=== PATIENT | female | born 1970 | race Caucasian/White ===

== ENCOUNTER → 2017-10-03 | Outpatient (CLI) | payer BC ==
[~2017-10-03] MED LIST: 'CIPRO500 M1 PO; ABILIFY2 MG PO; ACETAMINOPHEN/B1 TA1 PO; ALEVE220 MG PO; ANAPROX DS550 MG PO; BUDEPRION XL150 MG PO; BUSPIRONE HCL7.5 MG PO; CIPRO500 MG PO; DEMADEX10 M1 PO; DOXYCYCLINE100 M2 PO; Duoneb 3ML 3 MG/3 ML NEB; EES200 MG/5 M PO; LEVOTHYROXINE0.05 M1 PO; MOTRIN400 MG PO; MOTRIN800 MG PO; NKHM; PERCOCET 325 MG1 TA7 PO; PHENERGAN W/DM120 ML PO; SLOW FE45 MG PO; ULTRAM50 MG PO; WELLBUTRIN XL300 MG PO; ZITHROMAX500 MG PO
== END ==
LOC: RAD 11:04
DX: J18.8 Other pneumonia, unspecified organism (principal)

== ENCOUNTER → 2017-10-15 | Outpatient (CLI) | payer BC | END | disposition home or self-care (01) | LOC: RAD 14:46 | DX: J18.9 Pneumonia, unspecified organism (principal); I67.1 Cerebral aneurysm, nonruptured; Z87.891 Personal history of nicotine dependence; Z95.5 Presence of coronary angioplasty implant and graft ==

== ENCOUNTER → 2017-11-20 | Outpatient (CLI) | payer BC ==
[~2017-11-20] MED LIST changes: +CLARITIN10 MG PO; +DUONEB 3 MG/3 ML3 M1 INH; +FLONASE ALLERG9.9 ML NAS; +PREDNISONE10 MG PO; +ROBITUSSIN DM 105 ML PO; +VIBRAMYCIN100 MG PO
[2017-11-20 11:29] LABS: HEMOGLOBIN 13.6 g/dl (12.0-16.0); MEAN CELL VOLUME 91.5 fl (81.0-99.0); MEAN CORPUSCULAR HGB 30.4 pg (27.0-31.0); MEAN CORPUSCULAR HGB CONC 33.2 g/dl (33.0-37.0); MEAN PLATELET VOLUME 9.8 fl (9.6-12.3); RED BLOOD COUNT 4.48 10*6/uL (4.10-5.10); RED CELL DISTRI WIDTH 13.3 % (0-14.5); WHITE BLOOD COUNT 5.9 10*3/uL (4.8-10.8)
[2017-11-20 12:01] LABS: ALKALINE PHOSPHATASE 124 U/L (45-117); BUN 13 mg/dl (7-24); CHLORIDE 103 mmol/L (98-107); CHOLESTEROL 201 mg/dL (<200); CREATININE 0.78 mg/dL (0.55-1.02); FREE T4 1.32 ng/dl (0.76-1.46); HDL CHOLESTEROL 67 mg/dl (40-60); LDL CHOLESTEROL 117 mg/dL (9-159); POTASSIUM 3.9 mmol/L (3.5-5.1); SGOT/AST 14 IU/L (3-35); SGPT/ALT 24 U/L (12-78); SODIUM 138 mmol/L (136-145); TOTAL PROTEIN 7.8 gm/dL (6.4-8.2); TRIGLYCERIDES 86 mg/dl (<150); VLDL CHOLESTEROL 17 mg/dL (6-40)
[2017-11-20 12:06] LABS: THYROID STIM HORMONE (HS) 0.641 uIU/ml (0.358-4.75)
== END | disposition home or self-care (01) ==
LOC: MRI 11-07 10:00 → LAB 10:55 → MRI 11:00
PROVIDERS: Family Medicine
DX: I72.3 Aneurysm of iliac artery (principal); E78.00 Pure hypercholesterolemia, unspecified; E03.9 Hypothyroidism, unspecified

== ENCOUNTER 2017-11-22 17:18 | Emergency (ER) | payer BC ==
[~2017-11-22] VITALS: Ht 167.6 cm; Wt 72.6 kg
[~2017-11-22 17:18] MED LIST changes: -CLARITIN10 MG PO; -DUONEB 3 MG/3 ML3 M1 INH; -FLONASE ALLERG9.9 ML NAS; -PREDNISONE10 MG PO; -ROBITUSSIN DM 105 ML PO; -VIBRAMYCIN100 MG PO
[2017-11-22 17:31] VITALS: BP 154/90
[2017-11-22 18:00] LABS: BASO % 0.5 % (0.0-1.0); EOS # 0.3 10*3/uL (0.0-0.4); EOS % 4.3 % (1.0-4.0); HEMATOCRIT 40.3 % (37.0-47.0); HEMOGLOBIN 13.4 g/dl (12.0-16.0); LYMPH # 1.5 10*3/uL (1.3-4.4); LYMPH % 24.4 % (27.0-41.0); MEAN CORPUSCULAR HGB 30.6 pg (27.0-31.0); MEAN CORPUSCULAR HGB CONC 33.3 g/dl (33.0-37.0); MEAN PLATELET VOLUME 9.6 fl (9.6-12.3); MONO # 0.6 10*3/uL (0.1-1.0); MONO % 8.8 % (3.0-9.0); NEUT # 3.9 10*3/uL (2.3-7.9); NEUT % 61.8 % (47.0-73.0); PLATELET COUNT AUTOMATED 284 10*3/uL (130-400); RED BLOOD COUNT 4.38 10*6/uL (4.10-5.10); RED CELL DISTRI WIDTH 13.3 % (0-14.5); WHITE BLOOD COUNT 6.3 10*3/uL (4.8-10.8)
[2017-11-22] MEDS ORDERED: PREDNISONE10 MG PO (18:07)
[2017-11-22] MEDS ORDERED: FLONASE ALLERG9.9 ML NAS (18:07)
[2017-11-22] MEDS ORDERED: CLARITIN10 MG PO (18:07)
[2017-11-22] MEDS ORDERED: ROBITUSSIN DM 105 ML PO (18:07)
[2017-11-22 18:15] LABS: ALBUMIN 3.8 gm/dl (3.1-4.5); ALKALINE PHOSPHATASE 129 U/L (45-117); BUN 7 mg/dl (7-24); CHLORIDE 103 mmol/L (98-107); CREATININE 0.81 mg/dL (0.55-1.02); POTASSIUM 3.5 mmol/L (3.5-5.1); SGOT/AST 13 IU/L (3-35); SGPT/ALT 22 U/L (12-78); SODIUM 140 mmol/L (136-145); TOTAL PROTEIN 7.7 gm/dL (6.4-8.2)
[2017-11-22] MEDS ORDERED: VIBRAMYCIN100 MG PO (18:36)
[2017-11-22] MEDS ORDERED: DUONEB 3 MG/3 ML3 M1 INH (18:40)
== END 2017-11-22 18:44 | disposition home or self-care (01) ==
LOC: ED 17:18
PROVIDERS: Nurse Practitioner Family
DX: J20.9 Acute bronchitis, unspecified (principal); R03.0 Elevated blood-pressure reading, without diagnosis of hypertension; J45.909 Unspecified asthma, uncomplicated; E03.9 Hypothyroidism, unspecified; Z98.890 Other specified postprocedural states; Z90.49 Acquired absence of other specified parts of digestive tract; Z90.710 Acquired absence of both cervix and uterus; Z79.899 Other long term (current) drug therapy; Z91.041 Radiographic dye allergy status; Z88.0 Allergy status to penicillin; Z88.5 Allergy status to narcotic agent

== ENCOUNTER → 2018-01-13 | Outpatient (CLI) | payer BC ==
[~2018-01-13] MED LIST changes: +CLARITIN10 MG PO; +DUONEB 3 MG/3 ML3 M1 INH; +FLONASE ALLERG9.9 ML NAS; +PREDNISONE10 MG PO; +ROBITUSSIN DM 105 ML PO; +VIBRAMYCIN100 MG PO
[2018-01-13 13:17] LABS: HEMATOCRIT 39.8 % (37.0-47.0); MEAN CELL VOLUME 93.6 fl (81.0-99.0); MEAN CORPUSCULAR HGB 30.6 pg (27.0-31.0); MEAN CORPUSCULAR HGB CONC 32.7 g/dl (33.0-37.0); MEAN PLATELET VOLUME 9.6 fl (9.6-12.3); RED BLOOD COUNT 4.25 10*6/uL (4.10-5.10); RED CELL DISTRI WIDTH 13.8 % (0-14.5); WHITE BLOOD COUNT 9.2 10*3/uL (4.8-10.8)
[2018-01-13 13:49] LABS: ALBUMIN 3.6 gm/dl (3.1-4.5); ALKALINE PHOSPHATASE 99 U/L (45-117); BUN 12 mg/dl (7-24); CHLORIDE 106 mmol/L (98-107); CHOLESTEROL 173 mg/dL (<200); CREATININE 0.82 mg/dL (0.55-1.02); FREE T4 1.09 ng/dl (0.76-1.46); HDL CHOLESTEROL 55 mg/dl (40-60); LDL CHOLESTEROL 100 mg/dL (9-159); POTASSIUM 4.1 mmol/L (3.5-5.1); SGOT/AST 12 IU/L (3-35); SGPT/ALT 17 U/L (12-78); SODIUM 141 mmol/L (136-145); TOTAL PROTEIN 7.4 gm/dL (6.4-8.2); TRIGLYCERIDES 90 mg/dl (<150); VLDL CHOLESTEROL 18 mg/dL (6-40)
[2018-01-13 13:54] LABS: THYROID STIM HORMONE (HS) 0.711 uIU/ml (0.358-4.75)
== END | disposition home or self-care (01) ==
LOC: LAB 12:50
PROVIDERS: Family Medicine
DX: E03.9 Hypothyroidism, unspecified (principal); E55.9 Vitamin D deficiency, unspecified; G47.09 Other insomnia; R53.83 Other fatigue

== ENCOUNTER 2018-12-25 23:45 | Emergency (ER) | payer BC ==
[~2018-12-25] VITALS: Ht 170.1 cm; Wt 68.0 kg
--- NOTE | ~2018-12-25 | WRIGHTHP ---
[place], [place] PATIENT HISTORY AND PHYSICAL EXAM NAME: REFUGIO GUEVARA [facility] #: [id number] UNIT #: [id number] ROOM: DOCTOR: ALEXANDRA HARPER MD BIRTHDATE: [birth year] DOS: HISTORY OF PRESENT ILLNESS: The patient is a 48-year-old female with a past medical history of: 1. Major depression, recurrent. 2. Asthma. 3. Hypothyroidism. 4. Generalized anxiety disorder. The patient presented to the Emergency Department at [facility] with increasing shortness of breath since Sunday, that is 4 days. The patient is already being treated with azithromycin and prednisone by Dr. Rubio Townsend with failed outpatient treatment. The patient had acute respiratory failure with hypoxemia and a pulse ox of 87% at room air. The patient was started on oxygen, breathing treatments and she was quite tachycardic when she was admitted, heart rate going as fast as 130 beats per minute. White cell count elevated at 17,000. No dizziness or fainting episodes. No other GI or urinary symptoms. REVIEW OF SYSTEMS: RESPIRATORY: Increasing shortness of breath, wheezing, chest congestion and cough. CARDIOVASCULAR SYSTEM: No chest pains or palpitations. GASTROINTESTINAL: No nausea, vomiting, diarrhea or constipation. ALLERGIES: Known allergies to IVP DYE, PENICILLIN, IODINE, CODEINE, VICODIN, TYLENOL. PHYSICAL EXAMINATION: GENERAL: Alert and oriented x 3, in no visible distress, somewhat short of breath. VITAL SIGNS: Blood pressure 117/78, heart rate 96 beats per minute, breathing 20 times per minute, temperature 98.1 degrees Fahrenheit. HEENT AND NECK: Extraocular movements are intact. Sclerae are anicteric. Oral mucosa is moist and clean. No obvious facial weakness. Neck is supple without any lymphadenopathy. No thyromegaly. No JVD. No carotid arterial bruits. LUNGS: Auscultation revealed decreased breath sounds and expiratory wheezing all over. CARDIOVASCULAR SYSTEM: Heart rate is regular in rate and rhythm. S1 and S2 normally audible. No significant murmur or any other abnormal cardiac sounds. ABDOMEN: Soft, nontender. No obvious organomegaly. Bowel sounds are present. No obvious herniation. EXTREMITIES: Without significant cyanosis or edema. Warm to touch. CENTRAL NERVOUS SYSTEM: Alert and oriented x 3. Cranial nerves II-XII are intact. Speech is normal. The patient is able to move all extremities. Normal muscle strength. Deep tendon reflexes are equal on both sides. Plantars were downgoing. LABORATORY DATA: Chest x-ray showing no acute abnormality. Normal serum electrolytes. Influenza A and B were negative. White cell count of 17,000. [place], [place] PATIENT HISTORY AND PHYSICAL EXAM NAME: REFUGIO GUEVARA UNIT #: [id number] ROOM: DOCTOR: ALEXANDRA HARPER MD BIRTHDATE: [birth year] IMPRESSION AND PLAN: 1. Acute exacerbation of asthma with acute respiratory failure, being treated with corticosteroids, oxygen, nebulizer treatments and antibiotic and the patient feels slightly better. 2. Generalized anxiety disorder, to be monitored, followed and treated. 3. Major depression, recurrent, mild, presently asymptomatic. 4. Hypothyroidism, to be treated with thyroid supplements as necessary. 5. Sinus tachycardia related to acute asthma exacerbation with heart rates going at 130 beats per minute, has reduced to normal with small dose of Cardizem that she is getting now. ALEXANDRA HARPER MD CM:HISPHYS:PATIENT HISTORY AND PHYSICAL EXAMINATION 25 27 ALEXANDRA HARPER MD 12/26/182021 interface
[2018-12-26 00:19] LABS: BASO % 0.2 % (0.0-1.0); EOS # 0.1 10*3/uL (0.0-0.4); EOS % 0.4 % (1.0-4.0); HEMOGLOBIN 14.5 g/dl (12.0-16.0); LYMPH # 1.8 10*3/uL (1.3-4.4); LYMPH % 10.4 % (27.0-41.0); MEAN CELL VOLUME 97.1 fl (81.0-99.0); MONO # 0.9 10*3/uL (0.1-1.0); MONO % 5.5 % (3.0-9.0); NEUT # 14.2 10*3/uL (2.3-7.9); NEUT % 83.1 % (47.0-73.0); PLATELET COUNT AUTOMATED 394 10*3/uL (130-400); RED BLOOD COUNT 4.53 10*6/uL (4.10-5.10); RED CELL DISTRI WIDTH 14.2 % (0-14.5); WHITE BLOOD COUNT 17.1 10*3/uL (4.8-10.8)
[2018-12-26 00:44] LABS: ALBUMIN 3.8 gm/dl (3.1-4.5); ALKALINE PHOSPHATASE 130 U/L (45-117); BUN 15 mg/dl (7-24); CHLORIDE 106 mmol/L (98-107); POTASSIUM 3.7 mmol/L (3.5-5.1); SGOT/AST 10 IU/L (3-35); SGPT/ALT 21 U/L (12-78); SODIUM 140 mmol/L (136-145); TOTAL PROTEIN 8.3 gm/dL (6.4-8.2)
[2018-12-26 00:49] LABS: TROPONIN I < 0.015 ng/ml (<0.045)
[2018-12-26 00:50] VITALS: BP 138/89
[2018-12-26 00:53] LABS: BILIRUBIN NEGATIVE (NEGATIVE); BLOOD TRACE-INTACT (NEGATIVE); CLARITY CLEAR (CLEAR); COLOR YELLOW (YELLOW); GLUCOSE NEGATIVE (NEGATIVE); KETONE NEGATIVE (NEGATIVE); LEUKO ESTERASE TRACE (NEGATIVE); NITRITE POSITIVE (NEGATIVE); PH 5.5 (5.0-9.0); SPECIFIC GRAVITY 1.025 (1.005-1.030); UROBILINOGEN 0.2 E.U./dl (0.2-1.0)
[2018-12-26] MEDS ORDERED: LEVOFLOXACIN500 MG PO (00:57)
[2018-12-26 00:59] LABS: BACTERIA 4+; MUCOUS TRACE; RBC 0-2 rbc/hpf (0-2); WBC 16-20 wbc/hpf (0-5)
[2018-12-30] MEDS ORDERED: DILTIAZEM HCL240 M1 PO (17:43)
[2018-12-30] MEDS ORDERED: SEPTDS PO (17:43)
[2018-12-30] MEDS ORDERED: MEDROL DOSEPAK4 MG PO (17:46)
== END 2018-12-26 01:23 | disposition left against medical advice (07) ==
LOC: ED 23:45
PROVIDERS: Physician Assistant
DX: J40 Bronchitis, not specified as acute or chronic (principal); R09.02 Hypoxemia; F17.200 Nicotine dependence, unspecified, uncomplicated; Z91.041 Radiographic dye allergy status; Z88.0 Allergy status to penicillin; Z88.6 Allergy status to analgesic agent; Z79.899 Other long term (current) drug therapy

== ENCOUNTER → 2019-02-27 | Outpatient (CLI) | payer BC ==
[~2019-02-27] MED LIST changes: +DILTIAZEM HCL240 M1 PO; +DULERA 100 MCG8.8 GM INH; +LEVOFLOXACIN500 MG PO; +MEDROL DOSEPAK4 MG PO; +PROAIR HFA8.5 GM INH; +SEPTDS PO
== END | disposition home or self-care (01) ==
LOC: RAD 12:54
DX: J18.1 Lobar pneumonia, unspecified organism (principal); R50.9 Fever, unspecified; J45.909 Unspecified asthma, uncomplicated

== ENCOUNTER 2019-02-28 13:06 | Inpatient (IN) | payer BC ==
[~2019-02-28] VITALS: Ht 170.2 cm; Wt 72.6 kg
--- NOTE | ~2019-02-28 | EKG ---
[place], [place] ELECTROCARDIOGRAM REPORT NAME: REFUGIO GUEVARA UNIT #: [id number] ROOM: [facility] DOCTOR: HAWAANY DRAFT REPORT BIRTHDATE: [birth year] [facility] Test Date: 2019-03-01 Test Time: 22:13:20 Pat Name: REFUGIO GUEVARA Department: Room: [place] [address] Gender: F Office Rn: : 1970 Requested By: ALEXANDRA HARPER Order Number: [id number] Reading MD: Celi Antunez Measurements Intervals [place] Rate: 98 P: 87 [place]: 143 QRS: 21 QRSD: 96 T: 82 QT: 362 QTc: 463 Interpretive Statements Sinus rhythm Anteroseptal infarct, age indeterminate Compared to ECG 12/26/2018 05:09:09 Sinus tachycardia no longer present Atrial abnormality no longer present Left ventricular hypertrophy no longer present ST (T wave) deviation no longer present Myocardial infarct finding still present Electronically Signed On 03-05-2019 13:06:38 PDT by Celi Antunez CM:EKGRPT:ELECTROCARDIOGRAM REPORT [id number] 1306 ALEXANDRA HARPER MD EPIPHANY DRAFT REPORT ALEXANDRA HARPER MD
--- NOTE | ~2019-02-28 | CON ---
[place], [place] REPORT OF CONSULTATION NAME: REFUGIO GUEVARA [facility] #: [id number] UNIT #: [id number] ROOM: [facility] DOCTOR: DELROY SHANE MD BIRTHDATE: [birth year] DOS: 03/01/2019 PULMONARY CONSULTATION, EVALUATION AND MANAGEMENT CONSULTATION REQUESTED BY: Dr. Baumann. REASON FOR CONSULTATION: To assess the abnormal respiratory symptoms. HISTORY OF PRESENT ILLNESS: This is a 48-year-old white female patient with past history of COPD. The patient has been seen only one time, one day with admission in 12/2018. The patient was assessed at that time for exacerbation of chronic obstructive pulmonary disease with acute respiratory failure. She was also noted possibility of right middle lobe atelectasis with possible endobronchial obstruction. The patient was discharged the next day. She has not been seen in my office after that or in this hospital. She presented to the Emergency Room and has been hospitalized under care of Dr. Baumann from 02/28/2019. She presented to the Emergency Room with symptoms of increasing shortness with chest congestion. The patient denies any symptoms of fever or chills with current symptoms. She has been noted excessive chest congestion and coughing. She was also complaining of severe pain, which stated this morning at the time of the assessment approximately at 10:30 a.m., in the left anterior, lateral and posterior chest wall. She has been noted with chest congestion as well. The pulse oxygen saturation recorded 98% in the Emergency Room and normal pulse ox saturation later was noted this morning as a pulse oxygen saturation as 93% saturation at 08:11 a.m. At that time, the patient was seen, she was not using any oxygen supplementation, sitting on the side of the bed. The patient does complain of symptoms of some chest congestion and wheezing as well. REVIEW OF SYSTEMS: CONSTITUTIONAL SYMPTOMS: Fatigue and tiredness noted without any symptoms of fever or chills. EYES: Denies any burning, redness, or tenderness. EARS, NOSE, THROAT SYMPTOMS: Denies sore throat, hoarseness, otalgia, postnasal drainage or epistaxis. CARDIOVASCULAR: Denies angina pain, edema or pain of the lower extremities. GASTROINTESTINAL: Denies dysphagia, nausea, vomiting, diarrhea, abdominal pain, hematemesis, melena, or hematochezia. SKIN: Denies abnormal lesions or rashes. CENTRAL NERVOUS SYSTEM: Dizziness, headache, diplopia or syncopal episodes. PAST MEDICAL HISTORY: 1. The patient was noted as COPD, not assessed in the office previously. 2. Hypothyroidism. 3. Nicotine dependence with recent tobacco cessation. 4. Essential hypertension. SOCIAL HISTORY: The patient is . She lives at home. She has 5 children. Smoking started at younger age, a pack of cigarettes per day until 12/2018. [place], [place] REPORT OF CONSULTATION NAME: REFUGIO GUEVARA UNIT #: [id number] ROOM: [facility] DOCTOR: DELROY SHANE MD BIRTHDATE: [birth year] FAMILY HISTORY: Father is in a motor vehicle accident. Mother is living with history of type 2 diabetes mellitus. CURRENT MEDICATIONS: Which were administrated noted as Lovenox 40 mg subcutaneous daily, DuoNeb q. 4 hours, Protonix, IV Solu-Medrol 40 mg b.i.d., Cardizem-CD 240 mg daily, levothyroxine 50 mcg daily, Levaquin and vancomycin. The patient has previously received Rocephin as well. ALLERGIES: THE DRUG NOTED WITH SEVERAL ALLERGIES THAT INCLUDE: 1. IVP DYE. 2. PENICILLIN. 3. IODINE. 4. CODEINE. 5. VICODIN. PHYSICAL EXAMINATION: GENERAL: This is a 48-year-old female patient currently noted with excessive chest congestion and coughing at the present time. Height noted 5 feet 7 inches, weight of 160 pounds, BMI 25. VITAL SIGNS: Recorded shows a normal temperature since admission, respiratory rate 20-22, heart rate of 133-134 with sinus tachycardia. Pulse oxygen saturation recorded on room air 98% on 2 liters nasal cannula, 93% saturation earlier. HEENT: Head was atraumatic. Eyes nonicterus. NECK: Supple. CARDIOVASCULAR: Decreased breath sounds. Crackles of the left. ABDOMEN: Soft, nontender. Bowel sounds present. EXTREMITIES: The patient was noted without any acute edema. MUSCULOSKELETAL: The patient was noted without any acute deformities. CENTRAL NERVOUS SYSTEM: The patient's cranial nerves 2-12 intact. LABORATORY DATA: Chest x-ray done yesterday in the Emergency Room was noted with a large area of consolidation of the right upper lung was seen, right middle lobe cannot be clearly seen. One-view x-ray was done interstitial infiltration in the left lingula was also suspected. On 02/27/2019, chest x-ray was noted with persistent right middle lobe atelectasis with acute infiltration , which noted involving significant of the left lung. The chest x-ray that was done on previous admission was reviewed at that time shows partial right middle lobe atelectasis, finding of the left lung was noted completely new. IMPRESSION: 1. The patient will be currently admitted to the hospital with progressive increased respiratory symptom with acute pneumonia involving significant part of the left lung. 2. Acute exacerbation of chronic obstructive pulmonary disease as well. 3. The patient with excessive chest congestion with intermittent cough with current chest x-ray. PLAN OF TREATMENT: The patient will be requiring the bronchoscopy as well at some point of time during this hospitalization. The patient is already being [place], [place] REPORT OF CONSULTATION NAME: REFUGIO GUEVARA UNIT #: [id number] ROOM: [facility] DOCTOR: DELROY SHANE MD BIRTHDATE: [birth year] seen and managed for the infection by the Infectious Disease Services, follow their recommendation. Closely monitor respiratory status. At the present time with additional treatment changes will be recommended based on progression of the illness. Usual care, other therapy, plan of management and care, plan of treatments. Thanks for allowing me to participate in the care of this patient. DELROY CHAVEZ MD CM:CONSTR:REPORT OF CONSULTATION 1351 03/02/19 0458 interface
--- NOTE | ~2019-02-28 | O ---
[place], [place] OPERATIVE NOTE NAME: REFUGIO GUEVARA UNIT #: [id number] ROOM: [facility] DOCTOR: EVIE CASTANEDA CRNA BIRTHDATE: [birth year] DOS: 03/01/2019 INTUBATION REPORT Approximately 1:20 in the afternoon, I was called by the hospital. Dr. Collins was requesting a breathing tube be placed for the patient in ICU bed 12. Upon arrival, the patient's breathing was labored. Sat was 88. I explained the procedure to the patient and family, answered all questions and they agreed to proceed. She received 2 mg of Versed and 150 mg of propofol. We used a #4 MAC and a 7.5 oral ET tube placed without difficulty. Placement was verified with a positive end tidal CO2 and verified with breath sounds. Tube was secured at 21 cm at the lip line. This was done on the first attempt without difficulty. Care was resumed by staff and a chest x-ray was ordered. EVIE CASTANEDA CRNA CM:OPRECORD:OPERATIVE NOTE 1507 1519 EVIE CASTANEDA CRNA 03/13/192031 interface
--- NOTE | ~2019-02-28 | EKG ---
[place], [place] ELECTROCARDIOGRAM REPORT NAME: REFUGIO GUEVARA UNIT #: [id number] ROOM: [facility] DOCTOR: SELINA DRAFT REPORT BIRTHDATE: [birth year] [facility] Test Date: 2019-02-28 Test Time: 13:06:01 Pat Name: REFUGIO GUEVARA Department: Room: [facility] Gender: F Carpet Winder: : 1970 Requested By: ARASH SMALLS Order Number: [id number] Reading MD: Celi Antunez Measurements Intervals [place] Rate: 132 P: 90 WV: 145 QRS: 32 QRSD: 102 T: 138 QT: 298 QTc: 442 Interpretive Statements Sinus tachycardia LAE, consider biatrial enlargement LVH with secondary repolarization abnormality Anterior infarct, old Baseline wander in lead(s) II,V3 Compared to ECG 12/26/2018 05:09:09 Early repolarization now present ST (T wave) deviation no longer present Myocardial infarct finding still present Electronically Signed On 03-05-2019 12:49:43 PDT by Celi Antunez CM:EKGRPT:ELECTROCARDIOGRAM REPORT 1306 1249 ARASH MAHER DRAFT REPORT ARASH SMALLS DO
--- NOTE | ~2019-02-28 | DS ---
[place], [place] DISCHARGE SUMMARY NAME: [id number] UNIT #: [id number] ROOM: [facility] DOCTOR: ALEXANDRA HARPER MD BIRTHDATE: [birth year] DOS: 03/01/2019 DATE OF ADMISSION: 02/28/2019 DATE OF DISCHARGE: 03/01/2019 DISCHARGE DIAGNOSES: 1. Acute bilateral pneumonia, which is progressive. 2. Gram-positive cocci in clusters growing out of blood cultures. 3. Acute hypoxemia and acute respiratory failure, the patient intubated and on mechanical ventilation. 4. History of asthma. 5. Acute exacerbation of chronic obstructive pulmonary disease. 6. Generalized anxiety disorder. 7. Hypothyroidism. 8. Major depression, recurrent, mild. 9. History of sinus tachycardia. 10. Benign essential hypertension. HOSPITAL COURSE: The patient presented to Emergency Department with 4-5 day complaints of increasing shortness of breath, shaking chills, cough, shortness of breath and significant left chest pains, pleuritic in nature, mainly happen when she coughed. The patient was admitted to a monitored bed and later on transferred to ICU when she became even more hypoxemic. Chest x-rays showed bilateral lung infiltrate, more on the left side. The patient was evaluated by musical instruments assembler, Dr. Collins and ID consult was obtained. The patient has been covered with Levaquin, Rocephin. The patient develops significant tachycardia, heart rates up to 150 beats per minute, for which she was given Cardizem, which made her hypotensive. Later on, the patient required propofol infusion for sedation when she was intubated and on mechanical ventilation. Blood pressure is staying around 90 systolic now and heart rate around 130 beats per minute, sinus tachycardia. The patient has leukocytosis with a white cell count of 28,000. Sputum culture results are pending. Blood culture results as mentioned above. The patient is deeply sedated on mechanical ventilator. Since health status is declining. Dr. Collins, the musical instruments assembler, recommended transfer to a tertiary care center, which is being arranged. Hypokalemia, replaced with potassium supplements. Acute respiratory failure, the patient intubated and on mechanical ventilation. Vent management by Dr. Collins in the ICU. Cardiac enzymes have been negative. Sepsis from pneumonia with 2/2 bottles growing gram-positive cocci in clusters. Final culture results are still pending. Hypothyroidism, replaced with thyroid supplements. Left-sided severe pleuritic chest pains, which were treated with Dilaudid. [place], [place] DISCHARGE SUMMARY NAME: REFUGIO GUEVARA [facility] #: [id number] UNIT #: [id number] ROOM: [facility] DOCTOR: ALEXANDRA HARPER MD BIRTHDATE: [birth year] Acute exacerbation of chronic obstructive pulmonary disease, being treated with bronchodilators. Generalized anxiety disorder, being treated and controlled. Major depression, recurrent, mild. The patient was continued on treatment. DISCHARGE MANAGEMENT: The patient is on intravenous Cardizem infusion, levothyroxine 50 mcg daily, Lovenox 40 mg subcutaneous daily, DuoNeb every 4 hours, IV Levaquin 750 mg daily, IV vancomycin, ceftriaxone 1 g daily. Heart rate 112-129 beats per minute, blood pressure 112/60, breathing 28 times per minute, temperature 100.6 degrees Fahrenheit. ALEXANDRA HARPER MD CM:HALINA [id number] 1539 ALEXANDRA HARPER MD 03/01/19 1541 interface
--- NOTE | ~2019-02-28 | EKG ---
[place], [place] ELECTROCARDIOGRAM REPORT NAME: REFUGIO GUEVARA UNIT #: [id number] ROOM: [facility] DOCTOR: SELINA DRAFT REPORT BIRTHDATE: [birth year] [facility] Test Date: 2019-02-28 Test Time: 15:40:14 Pat Name: REFUGIO GUEVARA Department: Room: [facility] Gender: F Car Cleaner: Devi Mccollum : 1970 Requested By: ARASH SMALLS Order Number: [id number] Reading MD: Celi Antunez Measurements Intervals [place] Rate: 123 P: 88 [place]: 133 QRS: 45 QRSD: 100 T: 91 QT: 346 QTc: 495 Interpretive Statements Sinus tachycardia Consider right atrial enlargement Anteroseptal infarct, acute Compared to ECG 12/26/2018 05:09:09 Left ventricular hypertrophy no longer present ST (T wave) deviation no longer present Myocardial infarct finding still present Electronically Signed On 03-05-2019 12:52:13 PDT by Celi Antunez CM:EKGRPT:ELECTROCARDIOGRAM REPORT [id number] 1252 ARASH MAHER DRAFT REPORT ARASH SMALLS DO
--- NOTE | ~2019-02-28 | CON ---
[place], [place] REPORT OF CONSULTATION NAME: REFUGIO GUEVARA UNIT #: [id number] ROOM: [facility] DOCTOR: HELEN RAYGOZA,JANUARY BIRTHDATE: [birth year] DOS: 03/01/2019 HISTORY OF PRESENT ILLNESS: The patient is a 48-year-old female who was admitted from home yesterday. She was brought in and she had been ill for approximately 4-5 days according to review of the chart with increasing shortness of breath, fevers, chills and pain in the left chest. Upon reviewing the chest x-ray and report, she has an extensive left lung pneumonia. She was started on IV vancomycin this morning. She was given one dose of vancomycin yesterday as well as Levaquin and Merrem. She also was started on Rocephin last night. Urine for legionella and strep pneumonia have been obtained and are pending. She developed respiratory distress and was just intubated within the last few minutes. Since intubation, she has had thick yellow as well as bloody secretions with suctioning. WBCs on admission 28.2, temperature earlier of 100.6. Her blood cultures are now positive with Gram-positive cocci in clusters from both sets. According to the ER note, she was recently diagnosed with pneumonia, but I do not find any documentation of recent prior antibiotics. PAST MEDICAL HISTORY: As above as well as COPD, hypertension, depression, hypothyroidism, generalized anxiety disorder, asthma, cholecystectomy, CVA. ALLERGIES: Include PENICILLIN, IODINE, CODEINE, HYDROCODONE, IVP DYE. PAST SURGICAL HISTORY: She had a prior brain aneurysm, tonsillectomy and adenoidectomy, surgery for her aneurysm repair. CURRENT MEDICATIONS: Lovenox, Peridex, Levaquin, DuoNeb, propofol, Protonix, Solu-Medrol, Cardizem, vancomycin, Synthroid, Dilaudid, Rocephin. LABORATORY DATA: VBG shows pH of 7.138, CO2 of 54, bicarbonate 17.2. BUN 33, creatinine 1.06. Troponins are normal. WBCs 28.2, platelets 323, left shift with 93% neutrophils. BUN 26, creatinine 0.91. LFTs within normal limits. C-reactive protein 55.4. ProBNP 923. Lipase 89. REVIEW OF SYSTEMS: Extremely limited. The patient is currently unresponsive, intubated, observed bloody ET tube secretions, has also had a yellow initially with tube placement. No emesis or diarrhea per nursing. Temperature max 100.6. FAMILY MEDICAL HISTORY: Father at a young age from car accident. Mother alive with history of type 2 diabetes. SOCIAL HISTORY: Reportedly, the patient is unmarried, recently quit smoking. Drinks alcohol on weekends. Per the chart, denied recreational drug use. PHYSICAL EXAMINATION: GENERAL: A 48-year-old female, somewhat restless, but currently not responding to questions, just recently intubated. VITAL SIGNS: Temperature 100.6, pulse 129, respirations 28, BP 112/60. HEENT: Normocephalic. No observable thrush. ET tube in place with bloody secretions. NECK: Seems supple. [place], [place] REPORT OF CONSULTATION NAME: REFUGIO GUEVARA UNIT #: [id number] ROOM: [facility] DOCTOR: HELEN RAYGOZAJANUARY BIRTHDATE: [birth year] LUNGS: Very diminished bilaterally with few rales on the left. Respirations are somewhat labored. HEART: Regular rhythm. No murmur appreciated, tachycardia noted. ABDOMEN: Soft, nondistended, positive bowel sounds. EXTREMITIES: Trace edema bilateral lower extremities. Dorsalis pedis pulses 1/2 bilaterally. SKIN: Warm, dry, free of rashes. EXTREMITIES: Without cyanosis or clubbing. ASSESSMENT: Staph septicemia with severe bilateral community-acquired pneumonia, now in respiratory failure requiring intubation. PLAN: Discussed with staff to obtain sputum culture from ET tube secretions. Continue the vancomycin. Repeat blood cultures now. Continue Levaquin. Follow up on blood cultures and urinary antigens. Stop Rocephin. ADDENDUM: Add Clindamycin to inhibit Staph aureus toxin production in the case of possible PVL. I agree with the assessment and plan done by the nurse practitioner, Milly Cervantes. Reviewed the labs and imaging, made the necessary changes in the note. MILLY CERVANTES CNP Kavita Clifton MD CM:CONSTR:REPORT OF CONSULTATION 1338 03/15/19 1527 interface
--- NOTE | ~2019-02-28 | WRIGHTHP ---
[place], [place] PATIENT HISTORY AND PHYSICAL EXAM NAME: REFUGIO GUEVARA [facility] #: [id number] UNIT #: [id number] ROOM: 406 DOCTOR: ALEXANDRA HARPER MD BIRTHDATE: [birth year] DOS: 02/28/2019 HISTORY OF PRESENT ILLNESS: The patient is a 48-year-old female with a past medical history of: 1. COPD. 2. Asthma. 3. Generalized anxiety disorder. 4. Hypothyroidism. 5. Major depression, recurrent, mild. 6. Sinus tachycardia. 7. Benign essential hypertension. The patient presented to the Emergency Department with 4-5 day complaints of increasing shortness of breath, shaking, chills, cough and shortness of breath with significant pain in her left chest, especially when she coughed. No dizziness or fainting episode. No GI or urinary symptoms otherwise. REVIEW OF SYSTEMS: RESPIRATORY: Increasing shortness of breath. LUNGS: Chest congestion and cough. GASTROINTESTINAL: No nausea, vomiting, diarrhea, constipation. CARDIOVASCULAR: Pleuritic chest pains, only with coughing. FAMILY HISTORY: Noncontributory. ALLERGIES: Known allergies to PENICILLIN, IODINE, CODEINE. PHYSICAL EXAMINATION: GENERAL: Alert, oriented x 3, in no visible distress, somewhat short of breath. VITAL SIGNS: Blood pressure 107/66, heart rate 133 beats per minute, breathing 22 times per minute, temperature 98.5 degrees Fahrenheit. HEENT AND NECK: Extraocular movements are intact. Sclerae are anicteric. Oral mucosa is moist and clean. No obvious facial weakness. Neck is supple without any lymphadenopathy. No thyromegaly. No JVD. No carotid arterial bruits. LUNGS: Clear to auscultation. No wheezing. No rhonchi. CARDIOVASCULAR SYSTEM: Tachycardia. S1 and S2 normally audible. No significant murmur or any other abnormal cardiac sounds. ABDOMEN: Soft, nontender. No obvious organomegaly. Bowel sounds are present. No obvious herniation. EXTREMITIES: Without significant cyanosis or edema. Warm to touch. CENTRAL NERVOUS SYSTEM: Alert and oriented x 3. Cranial nerves II-XII are intact. Speech is normal. The patient is able to move all extremities. Normal muscle strength. Deep tendon reflexes are equal on both sides. Plantars were downgoing. IMPRESSION AND PLAN: 1. The patient with left upper and lower lung pneumonia on right lower lung pneumonic infiltrates, large pneumonia, to be treated with antibiotics. I am obtaining consult with infectious disease specialist and with Dr. Collins. [place], [place] PATIENT HISTORY AND PHYSICAL EXAM NAME: REFUGIO GUEVARA UNIT #: [id number] ROOM: [facility] DOCTOR: MEREDITH NGUYEN,ALEXANDRA Laguerre BIRTHDATE: [birth year] 2. Severe leukocytosis related to pneumonia. The patient has some shortness of breath and acute exacerbation of chronic obstructive pulmonary disease, to be treated with bronchodilators, oxygen, antibiotics, breathing treatments as necessary. 3. Possibility of atypical pneumonia, mycoplasma. 4. Severe pleuritic chest pains related to pneumonia, to be treated with Dilaudid as needed. 5. History of hypothyroidism, needs to be treated and followed. 6. Questioning the patient on history of opioid abuse in her or her family, turned out to be negative. The patient says she has taken opioids before in hospitalization and after that she had no craving for the drugs. ALEXANDRA HARPER MD CM:HISPHYS:PATIENT HISTORY AND PHYSICAL EXAMINATION [id number] [phone] ALEXANDRA HARPER MD 02/28/196 interface
--- NOTE | ~2019-02-28 | EKG ---
[place], [place] ELECTROCARDIOGRAM REPORT NAME: REFUGIO GUEVARA UNIT #: [id number] ROOM: [facility] DOCTOR: SELINA DRAFT REPORT BIRTHDATE: [birth year] [facility] Test Date: 2019-02-28 Test Time: 19:01:36 Pat Name: REFUGIO GUEVARA Department: Room: [facility] Gender: F Hand Stripper: Lon Esparza : 1970 Requested By: ARASH SMALLS Order Number: [id number] Reading MD: Celi Antunez Measurements Intervals Tillman Rate: 120 P: 95 CT: 131 QRS: 66 QRSD: 102 T: QT: 346 QTc: 489 Interpretive Statements Sinus tachycardia LAE, consider biatrial enlargement Anterior infarct, old Nonspecific T abnormalities, lateral leads Compared to ECG 12/26/2018 05:09:09 T-wave abnormality now present Left ventricular hypertrophy no longer present ST (T wave) deviation no longer present Myocardial infarct finding still present Electronically Signed On 03-05-2019 12:53:06 PDT by Celi Antunez CM:EKGRPT:ELECTROCARDIOGRAM REPORT [id number] ARASH MAHER DRAFT REPORT ARASH SMALLS DO
[~2019-02-28 13:06] MED LIST changes: -DULERA 100 MCG8.8 GM INH; -PROAIR HFA8.5 GM INH
[2019-02-28 13:10] VITALS: BP 135/69
[2019-02-28] MEDS ORDERED: LEVOFLOXACIN500 MG PO (13:11)
[2019-02-28] MEDS ORDERED: PREDNISONE10 MG PO (13:11)
[2019-02-28 13:32] LABS: HEMATOCRIT 37.5 % (37.0-47.0); MEAN CELL VOLUME 92.8 fl (81.0-99.0); MEAN CORPUSCULAR HGB 32.2 pg (27.0-31.0); MEAN CORPUSCULAR HGB CONC 34.7 g/dl (33.0-37.0); MEAN PLATELET VOLUME 10.1 fl (9.6-12.3); PLATELET COUNT AUTOMATED 323 10*3/uL (130-400); RED BLOOD COUNT 4.04 10*6/uL (4.10-5.10); RED CELL DISTRI WIDTH 13.2 % (0-14.5); WHITE BLOOD COUNT 28.2 10*3/uL (4.8-10.8)
[2019-02-28 13:43] LABS: INTERNATIONAL NORM RATIO 1.1 (2.0-3.5)
[2019-02-28 13:48] LABS: ALBUMIN 2.6 gm/dl (3.1-4.5); ALKALINE PHOSPHATASE 105 U/L (45-117); BUN 26 mg/dl (7-24); CHLORIDE 106 mmol/L (98-107); CREATININE 0.91 mg/dL (0.55-1.02); POTASSIUM 3.3 mmol/L (3.5-5.1); SGOT/AST 8 IU/L (3-35); SGPT/ALT 15 U/L (12-78); SODIUM 138 mmol/L (136-145); TOTAL PROTEIN 7.2 gm/dL (6.4-8.2)
[2019-02-28 13:51] VITALS: BP 128/54
[2019-02-28 13:56] LABS: PLATELET SUFFICIENCY NORMAL (NORMAL); TOTAL CELLS COUNTED 100 #CELLS; TOXIC GRANULATION SLIGHT
[2019-02-28 14:02] LABS: TROPONIN I < 0.015 ng/ml (<0.045)
[2019-02-28 14:33] VITALS: BP 124/70
[2019-02-28 14:58] VITALS: BP 138/87
[2019-02-28 15:15] VITALS: BP 107/66
--- NOTE | 2019-02-28 15:15 | NUR ---
A 48, admitted to , under the services of Dr. MEREDITH NGUYEN,ALEXANDRA Laguerre with a diagnosis of SEPSIS,PNEUMONIA. Chief complaint is SHORTNESS OF BREATHE, CHEST/LUNG PAIN WITH COUGHING. Patient arrived via bed from ER. Monitor applied. Initial assessment completed. Vital signs taken and recorded. DR. MEREDITH NGUYEN,ALEXANDRA Laguerre notified of admission to the unit. Orders received. See assessment for past medical history, medications and allergies. Patient and/or family oriented to unit. [address] visitation policy reviewed. Clothing/patient valuable form completed. FAUSTINA REAVES
--- NOTE | 2019-02-28 15:52 | NUR ---
CALLED DR. HARPER MADE AWARE ADMISSION. ORDERS TAKEN AND REVIEWED.
--- NOTE | 2019-02-28 15:59 | NUR ---
DR. CHAVEZ CALLED AWARE OF CONSULT. NO NEW ORDERS.
[2019-02-28] MEDS ORDERED: DULERA 100 MCG8.8 GM INH (16:07)
[2019-02-28] MEDS ORDERED: PROAIR HFA8.5 GM INH (16:08)
--- NOTE | 2019-02-28 16:59 | NUR ---
CALLED DR. MCGREGOR ANSWERING SERVICE REGARDING CONSULT AND NEED CALL BACK. DR. JUDGE IS FOOD AND NUTRITION PROFESSOR THEY WILL PAGE HER TO CALL.
--- NOTE | 2019-02-28 18:42 | NUR ---
CALLED ANSWERING SERVICE FOR DR. JUDGE FOR ANTIBX AND RECURRENT PNEUMONIA.
--- NOTE | 2019-02-28 19:10 | NUR ---
DR. JUDGE RETURNED CALL. NOTIFIED OF LAB RESULTS . ORDERS RECEIVED
[2019-02-28 20:00] VITALS: BP 112/74
--- NOTE | 2019-02-28 23:39 | NUR ---
SPOKE WITH DR. HARPER REGARDING SUSTAINED HEART RATE IN 140'S AND CONTINUED C/O PAIN WITH PAIN MED NOT BEING EFFECTIVE. ORDERS RECEIVED.
--- NOTE | 2019-02-28 23:45 | NUR ---
SPOKE WITH DR. CERVANTES REGARDING HR OF 140'S.
--- NOTE | 2019-02-28 23:47 | NUR ---
ANSWERING SERVICE NOTIFIED OF CONSULT FOR DR. CERVANTES.
[2019-03-01] VITALS (19 sets, daily range): BP systolic 71–131; BP diastolic 38–69
[2019-03-01 06:28] LABS: BUN 33 mg/dl (7-24); CHLORIDE 102 mmol/L (98-107); CREATININE 1.06 mg/dL (0.55-1.02); POTASSIUM 3.2 mmol/L (3.5-5.1); SODIUM 135 mmol/L (136-145)
--- NOTE | 2019-03-01 10:19 | NUR ---
DILAUDID 1MG IV GIVEN PER PATIEMT REQUEST FOR CHEST BACK AND SIDE PAIN RATING 9/10.
--- NOTE | 2019-03-01 11:20 | NUR ---
PATIENT'S POX IS IN THE 60S. 5L APPLIED TO GET POX TO 92. PATIENT SOUNDS VERY RASPY. DR HARPER NOTIFIED. ORDERS GIVEN TO TRANSFER TO ICU. DR CHAVEZ NOTIFIED.
[2019-03-01 12:01] LABS: ABG HCO3 17.2 mmol/l (22-26); ARTERIAL BLOOD GAS PO2 98.2 mmHg (80-90)
[2019-03-01 12:04] LABS: ABG BASE EXCESS -11.6 mmol/L (-2.0-2.0); ARTERIAL BLOOD GAS PH 7.138 (7.35-7.45)
--- NOTE | 2019-03-01 12:55 | NUR ---
PATIENT INTUBATED BY ANESTHESIA. #7.5 ETT 22 LIP. OGT INSERTED. #16 PATEL INSERTED 200CC CLEAR STRAW URINE. ST PER CM-RATE LOW 100'S. POX 88% ON 100% FIO2 VIA VENT. RHONCHI T/O.
[2019-03-01 16:01] LABS: ABG HCO3 17.6 mmol/l (22-26); ABG O2 SATURATION 93.6 % (95-97); ARTERIAL BLOOD GAS PO2 93.3 mmHg (80-90)
[2019-03-01 16:06] LABS: ABG BASE EXCESS -14.4 mmol/L (-2.0-2.0); ARTERIAL BLOOD GAS PCO2 70.5 mmHg (35-45); ARTERIAL BLOOD GAS PH 7.029 (7.35-7.45)
--- NOTE | 2019-03-01 16:07 | NUR ---
NOTIFIED OF ABG RESULTS. NEW ORDERS RECEIVED.
--- NOTE | 2019-03-01 16:20 | NUR ---
Talked with Dr. Collins on the phone through some vent settings. Vent settings were changed to AC-24-500-8+-100%
[2019-03-01 17:28] LABS: ABG HCO3 16.1 mmol/l (22-26); ABG O2 SATURATION 94.6 % (95-97); ARTERIAL BLOOD GAS PCO2 54.5 mmHg (35-45); ARTERIAL BLOOD GAS PO2 88.3 mmHg (80-90)
[2019-03-01 17:49] LABS: ABG BASE EXCESS -13.7 mmol/L (-2.0-2.0); ARTERIAL BLOOD GAS PH 7.1 (7.35-7.45)
--- NOTE | 2019-03-01 20:13 | NUR ---
Versed given for sedation. It was immediately effective.
--- NOTE | 2019-03-01 20:29 | NUR ---
Report called to Mike at [facility].
--- NOTE | 2019-03-01 21:18 | NUR ---
[facility] had put patient on their vent. Patient's pulse ox kept dropping to 88%. Patient was placed back on [facility] vent and patient SPO2 remains 93-95%. This nurse just updated Milad at [facility].
--- NOTE | 2019-03-01 21:30 | NUR ---
Armida APARICIO updated spouse that we were unable to transport patient with [facility] and that patient would have to be life flighted. Awaiting flight crews arrival.
--- NOTE | 2019-03-01 21:43 | NUR ---
Mike at [facility] updated on patient's transfer status.
--- NOTE | 2019-03-01 22:13 | NUR ---
[facility] REQUESTED STAT EKG.
--- NOTE | 2019-03-01 22:46 | NUR ---
PATIENT TRANSPORTED TO [facility] BY [facility]. THIS NURSE ATTEMPTED TO UPDATE SPOUSE PHONE KEEPS RINGING BUSY.
--- NOTE | 2019-03-01 22:53 | NUR ---
ATTEMPTED TO CALL SPOUSE AGAIN. PHONE CONTINUES TO RING BUSY.
== END 2019-03-01 22:46 | disposition short-term general hospital (02) | DRG 871 ==
LOC: ED 13:06 → EDHOLD 14:50 → 4E 14:51 → ICCU 03-01 11:36
PROVIDERS: Emergency Medicine; Internal Medicine Critical Care Medicine; ADMIT Internal Medicine
PROC: 0BH17EZ Insertion of Endotracheal Airway into Trachea, Via Natural or Artificial Opening (ICD-10-PCS; principal; 2019-03-01)
PROC: 5A1935Z Respiratory Ventilation, Less than 24 Consecutive Hours (ICD-10-PCS; principal; 2019-03-01)
DX: A41.2 Sepsis due to unspecified staphylococcus (principal); J96.01 Acute respiratory failure with hypoxia; J15.4 Pneumonia due to other streptococci; J44.1 Chronic obstructive pulmonary disease with (acute) exacerbation; J44.0 Chronic obstructive pulmonary disease with (acute) lower respiratory infection; F33.0 Major depressive disorder, recurrent, mild; F41.1 Generalized anxiety disorder; E03.9 Hypothyroidism, unspecified; I10 Essential (primary) hypertension; B96.89 Other specified bacterial agents as the cause of diseases classified elsewhere; I95.9 Hypotension, unspecified; E87.6 Hypokalemia; Z88.0 Allergy status to penicillin; Z88.6 Allergy status to analgesic agent; Z88.8 Allergy status to other drugs, medicaments and biological substances; Z91.041 Radiographic dye allergy status; Z79.899 Other long term (current) drug therapy; Z87.01 Personal history of pneumonia (recurrent); Z87.440 Personal history of urinary (tract) infections; Z90.49 Acquired absence of other specified parts of digestive tract; Z90.710 Acquired absence of both cervix and uterus; Z83.3 Family history of diabetes mellitus; Z86.73 Personal history of transient ischemic attack (TIA), and cerebral infarction without residual deficits; Z90.89 Acquired absence of other organs

== ENCOUNTER → 2019-04-12 | Outpatient (CLI) | payer BC ==
[~2019-04-12] MED LIST changes: +DULERA 100 MCG8.8 GM INH; +PROAIR HFA8.5 GM INH
== END | disposition home or self-care (01) ==
LOC: RAD 13:32
DX: J15.212 Pneumonia due to Methicillin resistant Staphylococcus aureus (principal); R78.81 Bacteremia; J98.11 Atelectasis

== ENCOUNTER → 2019-04-19 | Outpatient (CLI) | payer BC | END | disposition home or self-care (01) | LOC: RAD 12:52 | DX: J18.9 Pneumonia, unspecified organism (principal) ==

== ENCOUNTER → 2019-05-28 | Outpatient (CLI) | payer SELFPAY | END | disposition home or self-care (01) | LOC: MAMMO 11:00 | DX: N64.89 Other specified disorders of breast (principal) ==

== ENCOUNTER → 2019-05-30 | Outpatient (CLI) | payer SELFPAY ==
[2019-05-30 15:50] LABS: CREATININE 0.95 mg/dL (0.55-1.02)
== END | disposition home or self-care (01) ==
LOC: LAB 01:32 → CT 16:00 → LAB 16:00
PROVIDERS: Radiology Diagnostic Radiology
DX: R91.1 Solitary pulmonary nodule (principal); J18.9 Pneumonia, unspecified organism; J45.909 Unspecified asthma, uncomplicated; R91.8 Other nonspecific abnormal finding of lung field

== ENCOUNTER → 2020-01-11 | Outpatient (CLI) | payer BC ==
[2020-01-11 16:31] LABS: HEMATOCRIT 37.1 % (37.0-47.0); HEMOGLOBIN 12.1 g/dl (12.0-16.0); MEAN CELL VOLUME 97.6 fl (81.0-99.0); MEAN CORPUSCULAR HGB 31.8 pg (27.0-31.0); MEAN CORPUSCULAR HGB CONC 32.6 g/dl (33.0-37.0); MEAN PLATELET VOLUME 9.4 fl (9.6-12.3); RED BLOOD COUNT 3.8 10*6/uL (4.10-5.10); RED CELL DISTRI WIDTH 13.5 % (0-14.5); WHITE BLOOD COUNT 11.2 10*3/uL (4.8-10.8)
[2020-01-11 16:49] LABS: ALBUMIN 3.5 gm/dl (3.1-4.5); ALKALINE PHOSPHATASE 137 U/L (45-117); BUN 23 mg/dl (7-24); CHLORIDE 111 mmol/L (98-107); CHOLESTEROL 184 mg/dL (<200); CREATININE 0.79 mg/dL (0.55-1.02); HDL CHOLESTEROL 55 mg/dl (40-60); LDL CHOLESTEROL 84 mg/dL (9-159); POTASSIUM 4.5 mmol/L (3.5-5.1); SGOT/AST 16 IU/L (3-35); SGPT/ALT 24 U/L (12-78); SODIUM 141 mmol/L (136-145); TOTAL PROTEIN 7.5 gm/dL (6.4-8.2); TRIGLYCERIDES 227 mg/dl (<150); VLDL CHOLESTEROL 45 mg/dL (6-40)
[2020-01-11 16:51] LABS: FREE T4 1.09 ng/dl (0.76-1.46)
[2020-01-11 16:56] LABS: THYROID STIM HORMONE (HS) 0.924 uIU/ml (0.358-4.75)
== END | disposition home or self-care (01) ==
LOC: LAB 16:10
PROVIDERS: Family Medicine
DX: E78.5 Hyperlipidemia, unspecified (principal); E03.9 Hypothyroidism, unspecified; R63.5 Abnormal weight gain; I25.10 Atherosclerotic heart disease of native coronary artery without angina pectoris

== ENCOUNTER → 2020-01-16 | Outpatient (CLI) | payer BC | END | disposition home or self-care (01) | LOC: US 10:22 | DX: R10.2 Pelvic and perineal pain (principal); N93.9 Abnormal uterine and vaginal bleeding, unspecified; Z90.710 Acquired absence of both cervix and uterus ==

== ENCOUNTER → 2020-07-26 | Outpatient (CLI) | payer BC | END | disposition home or self-care (01) | LOC: COVID19 13:10 | PROVIDERS: ATTEND Family Medicine | DX: R06.02 Shortness of breath (principal); J44.9 Chronic obstructive pulmonary disease, unspecified; Z20.828 Contact with and (suspected) exposure to other viral communicable diseases ==

== ENCOUNTER → 2020-07-31 | Outpatient (CLI) | payer BC | END | disposition home or self-care (01) | LOC: RAD 16:30 | PROVIDERS: ATTEND Family Medicine | DX: J98.4 Other disorders of lung (principal) ==

== ENCOUNTER → 2020-08-04 | Outpatient (CLI) | payer BC ==
[2020-08-04 10:54] LABS: CREATININE 0.78 mg/dL (0.55-1.02)
== END | disposition home or self-care (01) ==
LOC: CT 10:00 → LAB 10:17
PROVIDERS: ATTEND Family Medicine
DX: J43.9 Emphysema, unspecified (principal)

== ENCOUNTER → 2020-08-27 | Outpatient (CLI) | payer BC | END | disposition home or self-care (01) | LOC: COVID19 14:25 | PROVIDERS: ATTEND Family Medicine | DX: Z20.828 Contact with and (suspected) exposure to other viral communicable diseases (principal) ==

== ENCOUNTER → 2021-05-09 | Outpatient (CLI) | payer BC ==
[2021-05-09 13:43] LABS: HEMATOCRIT 41.7 % (37.0-47.0); MEAN CELL VOLUME 96.3 fl (81.0-99.0); MEAN CORPUSCULAR HGB CONC 31.2 g/dl (33.0-37.0); MEAN PLATELET VOLUME 9.8 fl (9.6-12.3); RED BLOOD COUNT 4.33 10*6/uL (4.10-5.10); RED CELL DISTRI WIDTH 13.2 % (0-14.5)
[2021-05-09 14:00] LABS: ALBUMIN 3.8 gm/dl (3.1-4.5); ALKALINE PHOSPHATASE 125 U/L (45-117); BUN 17 mg/dl (7-24); CHLORIDE 106 mmol/L (98-107); CHOLESTEROL 219 mg/dL (<200); CREATININE 0.72 mg/dL (0.55-1.02); FREE T4 1.27 ng/dl (0.76-1.46); LDL CHOLESTEROL 107 mg/dL (9-159); POTASSIUM 4.1 mmol/L (3.5-5.1); SGOT/AST 7 IU/L (3-35); SGPT/ALT 19 U/L (12-78); SODIUM 139 mmol/L (136-145); TOTAL PROTEIN 7.5 gm/dL (6.4-8.2); TRIGLYCERIDES 199 mg/dl (<150)
[2021-05-09 14:05] LABS: THYROID STIM HORMONE (HS) 0.742 uIU/ml (0.358-4.75)
== END | disposition home or self-care (01) ==
LOC: LAB 13:06
PROVIDERS: ATTEND Family Medicine
DX: E03.9 Hypothyroidism, unspecified (principal); E78.5 Hyperlipidemia, unspecified; J44.9 Chronic obstructive pulmonary disease, unspecified; R06.02 Shortness of breath; R51.9 Headache, unspecified; R63.5 Abnormal weight gain

== ENCOUNTER → 2021-06-23 | Outpatient (CLI) | payer BC | END | disposition home or self-care (01) | LOC: RAD 18:01 | PROVIDERS: ATTEND Family Medicine | DX: J43.9 Emphysema, unspecified (principal) ==

== ENCOUNTER → 2021-08-13 | Outpatient (CLI) | payer BC ==
[~2021-08-13] MED LIST changes: +BUSPAR5 MG PO; +CEFUROXIME AXE250 MG PO; +CETIRIZINE10 MG PO; +PREDNISONE5 MG PO; +TOPROL XL25 MG PO; +TRELEGY ELLIPT1 EACH IH
[2021-08-13 14:08] LABS: HEMATOCRIT 40.9 % (37.0-47.0); MEAN CELL VOLUME 97.4 fl (81.0-99.0); MEAN CORPUSCULAR HGB 30.5 pg (27.0-31.0); MEAN CORPUSCULAR HGB CONC 31.3 g/dl (33.0-37.0); MEAN PLATELET VOLUME 9.6 fl (9.6-12.3); RED BLOOD COUNT 4.2 10*6/uL (4.10-5.10); RED CELL DISTRI WIDTH 14.1 % (0-14.5); WHITE BLOOD COUNT 16.1 10*3/uL (4.8-10.8)
[2021-08-13 14:24] LABS: ALBUMIN 3.9 gm/dl (3.1-4.5); ALKALINE PHOSPHATASE 106 U/L (45-117); BUN 20 mg/dl (7-24); CHLORIDE 101 mmol/L (98-107); CREATININE 0.78 mg/dL (0.55-1.02); POTASSIUM 5.5 mmol/L (3.5-5.1); SGOT/AST 10 IU/L (3-35); SGPT/ALT 22 U/L (12-78); SODIUM 139 mmol/L (136-145); TOTAL PROTEIN 8.2 gm/dL (6.4-8.2)
== END | disposition home or self-care (01) ==
LOC: LAB 13:38 → RAD 13:38
PROVIDERS: ATTEND Family Medicine
DX: J44.9 Chronic obstructive pulmonary disease, unspecified (principal); J18.9 Pneumonia, unspecified organism; D72.829 Elevated white blood cell count, unspecified

== ENCOUNTER → 2021-09-16 | Outpatient (CLI) | payer BC | END | disposition home or self-care (01) | LOC: CT 15:38 | PROVIDERS: ATTEND Family Medicine | DX: J18.8 Other pneumonia, unspecified organism (principal); R91.8 Other nonspecific abnormal finding of lung field ==

== ENCOUNTER → 2021-12-09 | Outpatient (CLI) | payer BC ==
[~2021-12-09] MED LIST changes: +ACETAMINOPHEN325 M2 PEG; +ASPIRIN CHEWABL81 MG PEG; +BUSPIRONE HCL7.5 MG PEG; +DILT-XR240 MG PO; +Ipratropium Brom3 ML INH; +LEVOFLOXACIN500 MG PEG; -LEVOTHYROXINE0.05 M1 PO; +LEVOTHYROXINE100 MC1 PO; +LEVOTHYROXINE50 MCG PEG; +METOPROLOL25 MG PEG; +POTASSIUM CHLO20 ME3 PEG; +PROTONIX40 M2 PEG; +REMERON15 M2 PEG; +TRELEGY ELLIPT1 EACH INH; +XANAX0.25 MG PEG
== END | disposition home or self-care (01) ==
LOC: RAD/SH 02:13
PROVIDERS: ATTEND Family Medicine
DX: R63.30 Feeding difficulties, unspecified (principal)

== ENCOUNTER 2022-08-31 19:22 | Emergency (ER) | payer BC ==
[~2022-08-31] VITALS: Ht 167.6 cm; Wt 70.3 kg
[2022-08-31 19:43] VITALS: BP 155/88
[2022-08-31 20:08] LABS: BASO % 0.4 % (0.0-1.0); EOS # 0.5 10*3/uL (0.0-0.4); EOS % 4.4 % (1.0-4.0); HEMATOCRIT 35.3 % (37.0-47.0); LYMPH # 2.4 10*3/uL (1.3-4.4); LYMPH % 22.3 % (27.0-41.0); MEAN CORPUSCULAR HGB 27.7 pg (27.0-31.0); MEAN CORPUSCULAR HGB CONC 31.4 g/dl (33.0-37.0); MEAN PLATELET VOLUME 8.7 fl (9.6-12.3); MONO # 0.6 10*3/uL (0.1-1.0); MONO % 5.8 % (3.0-9.0); NEUT # 7.3 10*3/uL (2.3-7.9); NEUT % 66.6 % (47.0-73.0); PLATELET COUNT AUTOMATED 480 10*3/uL (130-400); RED BLOOD COUNT 4.01 10*6/uL (4.10-5.10); RED CELL DISTRI WIDTH 16.3 % (0-14.5); WHITE BLOOD COUNT 10.9 10*3/uL (4.8-10.8)
== END 2022-08-31 22:58 | disposition home or self-care (01) ==
LOC: ED 19:22
PROVIDERS: Internal Medicine
DX: R04.0 Epistaxis (principal); Z88.0 Allergy status to penicillin; Z88.6 Allergy status to analgesic agent; Z88.1 Allergy status to other antibiotic agents; Z91.041 Radiographic dye allergy status; Z79.899 Other long term (current) drug therapy; Z79.82 Long term (current) use of aspirin; Z90.710 Acquired absence of both cervix and uterus; Z90.49 Acquired absence of other specified parts of digestive tract; Z87.891 Personal history of nicotine dependence

== ENCOUNTER 2022-09-12 08:51 | Emergency (ER) | payer BC ==
[~2022-09-12] VITALS: Ht 167.6 cm; Wt 70.3 kg
[2022-09-12 09:03] VITALS: BP 151/97
[2022-09-12] MEDS ORDERED: METOPROLOL TAR100 M1 PO (09:07)
[2022-09-12] MEDS ORDERED: DILTIAZEM HCL30 MG PO (09:07)
[2022-09-12] MEDS ORDERED: NICODERM CQ1 EAC1 T (09:08)
[2022-09-12] MEDS ORDERED: DAYVIGO10 MG PO (09:08)
[2022-09-12] MEDS ORDERED: ELIQUIS5 M1 PO (09:08)
[2022-09-12] MEDS ORDERED: PRAMIPEXOLE0.125 MG PO (09:09)
[2022-09-12] MEDS ORDERED: TRELEGY ELLIPT1 EAC1 INH (09:09)
[2022-09-12] MEDS ORDERED: VIBRA-TAB100 MG PO (12:18)
[2022-09-12] MEDS ORDERED: PERCOCET 5-3251 EACH PO (12:18)
== END 2022-09-12 12:40 | disposition home or self-care (01) ==
LOC: ED 08:51
DX: R04.0 Epistaxis (principal); Z88.0 Allergy status to penicillin; Z79.899 Other long term (current) drug therapy; Z88.5 Allergy status to narcotic agent; Z88.2 Allergy status to sulfonamides; Z91.040 Latex allergy status; Z88.8 Allergy status to other drugs, medicaments and biological substances; Z90.710 Acquired absence of both cervix and uterus; Z90.49 Acquired absence of other specified parts of digestive tract; Z98.890 Other specified postprocedural states; Z87.891 Personal history of nicotine dependence; F10.90 Alcohol use, unspecified, uncomplicated

== ENCOUNTER 2022-09-13 05:36 | Emergency (ER) | payer BC ==
[~2022-09-13] VITALS: Ht 167.6 cm; Wt 70.3 kg
[~2022-09-13 05:36] MED LIST changes: +DAYVIGO10 MG PO; +DILTIAZEM HCL30 MG PO; +ELIQUIS5 M1 PO; +METOPROLOL TAR100 M1 PO; +NICODERM CQ1 EAC1 T; +PERCOCET 5-3251 EACH PO; +PRAMIPEXOLE0.125 MG PO; +TRELEGY ELLIPT1 EAC1 INH; +VIBRA-TAB100 MG PO
[2022-09-13 05:51] VITALS: BP 188/110
== END 2022-09-13 06:54 | disposition home or self-care (01) ==
LOC: ED 05:36
DX: R04.0 Epistaxis (principal); Z87.891 Personal history of nicotine dependence; Z90.710 Acquired absence of both cervix and uterus; Z98.890 Other specified postprocedural states; Z90.49 Acquired absence of other specified parts of digestive tract; Z79.899 Other long term (current) drug therapy; Z79.82 Long term (current) use of aspirin; Z88.0 Allergy status to penicillin; Z91.041 Radiographic dye allergy status; Z88.1 Allergy status to other antibiotic agents; Z88.8 Allergy status to other drugs, medicaments and biological substances

== ENCOUNTER 2022-12-22 16:23 | Emergency (ER) | payer BC ==
[~2022-12-22] VITALS: Ht 170.1 cm; Wt 70.8 kg
[2022-12-22 16:49] VITALS: BP 163/87
[2022-12-22 17:30] LABS: BASO % 0.2 % (0.0-1.0); EOS # 0.1 10*3/uL (0.0-0.4); EOS % 0.7 % (1.0-4.0); HEMATOCRIT 31.2 % (37.0-47.0); LYMPH # 2.1 10*3/uL (1.3-4.4); LYMPH % 11.8 % (27.0-41.0); MEAN CELL VOLUME 75.7 fl (81.0-99.0); MEAN CORPUSCULAR HGB 22.8 pg (27.0-31.0); MEAN CORPUSCULAR HGB CONC 30.1 g/dl (33.0-37.0); MEAN PLATELET VOLUME 9.3 fl (9.6-12.3); MONO # 1.5 10*3/uL (0.1-1.0); MONO % 8.3 % (3.0-9.0); NEUT # 13.8 10*3/uL (2.3-7.9); NEUT % 77.4 % (47.0-73.0); PLATELET COUNT AUTOMATED 673 10*3/uL (130-400); RED BLOOD COUNT 4.12 10*6/uL (4.10-5.10); WHITE BLOOD COUNT 17.8 10*3/uL (4.8-10.8)
[2022-12-22 17:49] LABS: ALKALINE PHOSPHATASE 160 U/L (46-116); BUN 14 mg/dl (9-23); CHLORIDE 104 mmol/L (98-107); POTASSIUM 3.4 mmol/L (3.4-5.1); SGPT/ALT 30 U/L (10-49); TOTAL PROTEIN 7.1 gm/dL (6.0-8.0)
[2022-12-22] MEDS ORDERED: LEVOFLOXACIN500 MG PO (18:08)
== END 2022-12-22 18:14 | disposition home or self-care (01) ==
LOC: ED 16:23
PROVIDERS: Nurse Practitioner Family
DX: J40 Bronchitis, not specified as acute or chronic (principal); Z20.822 Contact with and (suspected) exposure to COVID-19; Z88.0 Allergy status to penicillin; Z88.8 Allergy status to other drugs, medicaments and biological substances; Z88.2 Allergy status to sulfonamides; Z91.041 Radiographic dye allergy status; Z79.899 Other long term (current) drug therapy; Z90.49 Acquired absence of other specified parts of digestive tract; Z90.710 Acquired absence of both cervix and uterus; Z98.890 Other specified postprocedural states; Z90.89 Acquired absence of other organs; Z87.891 Personal history of nicotine dependence

== ENCOUNTER → 2023-02-12 | Outpatient (CLI) | payer BC ==
[2023-02-12 17:28] LABS: ALKALINE PHOSPHATASE 104 U/L (46-116); CHOLESTEROL 195 mg/dL (<200); GAMMA GLUTAMYL TRANSPEPTIDASE 39 U/L (0-73); LDL CHOLESTEROL 101 mg/dL (9-159); SGPT/ALT 12 U/L (10-49); TOTAL PROTEIN 7.2 gm/dL (6.0-8.0); TRIGLYCERIDES 157 mg/dl (<150); URIC ACID 3.7 mg/dL (3.1-7.8)
== END | disposition home or self-care (01) ==
LOC: LAB 16:19
PROVIDERS: ATTEND Family Medicine
DX: K12.1 Other forms of stomatitis (principal); K76.0 Fatty (change of) liver, not elsewhere classified

== ENCOUNTER → 2023-02-13 | Outpatient (CLI) | payer BC | END | disposition home or self-care (01) | LOC: CT 01:03 | PROVIDERS: ATTEND Family Medicine | DX: J43.2 Centrilobular emphysema (principal); R91.8 Other nonspecific abnormal finding of lung field; J98.4 Other disorders of lung; I47.1 Supraventricular tachycardia ==

== ENCOUNTER → 2023-03-06 | Outpatient (CLI) | payer BC ==
[2023-03-06 16:06] LABS: BUN 12 mg/dl (9-23); CHLORIDE 100 mmol/L (98-107); POTASSIUM 5.1 mmol/L (3.4-5.1)
[2023-03-07 08:09] LABS: ALPHA-1-ANTITRYPSIN, SERUM 348 mg/dL (101-187)
[2023-03-07 12:07] LABS: ANTI-RNP ANTIBODIES <0.2 AI (0.0-0.9)
[2023-03-08 13:07] LABS: ANTISCLERODERMA-70 AB <0.2 AI (0.0-0.9); TB1 Ag VALUE 0.07 IU/mL (.)
== END | disposition home or self-care (01) ==
LOC: LAB 15:05
PROVIDERS: ATTEND Internal Medicine Hematology & Oncology
DX: J47.9 Bronchiectasis, uncomplicated (principal); R91.1 Solitary pulmonary nodule

== ENCOUNTER → 2023-03-07 | Outpatient (CLI) | payer BC | END | disposition home or self-care (01) | LOC: US 01:48 | PROVIDERS: ATTEND Family Medicine | DX: K76.89 Other specified diseases of liver (principal); N28.9 Disorder of kidney and ureter, unspecified ==

== ENCOUNTER → 2023-04-12 | Outpatient (CLI) | payer BC ==
[~2023-04-12] MED LIST changes: +BUMETANIDE0.5 MG PO; +CO Q10100 MG PO; +CO-ENZYME Q101 EACH PO; +K-TAB20 MEQ PO; +PANTOPRAZOLE SO40 MG PO; +PHARMASSURE MA500 MG PO; +PREDNISONE20 M1 PO; +PREMIERPRO RX ME1 GM IV; +TRAMADOL HCL50 MG PO; +VITAMIN B-121000 MC2 PO; +ZINC GLUCONATE50 MG PO
== END | disposition home or self-care (01) ==
LOC: RAD 14:42
PROVIDERS: ATTEND Internal Medicine Critical Care Medicine
DX: J43.8 Other emphysema (principal); R91.1 Solitary pulmonary nodule; J85.1 Abscess of lung with pneumonia; R63.4 Abnormal weight loss; Z99.81 Dependence on supplemental oxygen; Z87.891 Personal history of nicotine dependence

== ENCOUNTER → 2023-05-07 | Outpatient (CLI) | payer BC ==
[~2023-05-07] MED LIST changes: -ACETAMINOPHEN325 M2 PEG; +ACETAMINOPHEN325 M2 PO; -ASPIRIN CHEWABL81 MG PEG; +ASPIRIN CHEWABL81 MG PO; -BUSPIRONE HCL7.5 MG PEG; +K-LOR 20MEQ20 ME1 PO; -LEVOTHYROXINE50 MCG PEG; +LEVOTHYROXINE50 MCG PO; +MAGIC MOUTHWASH; +MILLIPRED5 MG PO
[2023-05-07 16:22] LABS: HEMATOCRIT 33.8 % (37.0-47.0); MEAN CELL VOLUME 85.1 fl (81.0-99.0); MEAN CORPUSCULAR HGB 27.7 pg (27.0-31.0); MEAN CORPUSCULAR HGB CONC 32.5 g/dl (33.0-37.0); MEAN PLATELET VOLUME 9.4 fl (9.6-12.3); PLATELET COUNT AUTOMATED 386 10*3/uL (130-400); RED BLOOD COUNT 3.97 10*6/uL (4.10-5.10); RED CELL DISTRI WIDTH 18.5 % (0-14.5); WHITE BLOOD COUNT 17.9 10*3/uL (4.8-10.8)
[2023-05-07 16:26] LABS: MANUAL DIFF REFLEX YES
[2023-05-07 16:43] LABS: TOTAL CELLS COUNTED 100 #CELLS
[2023-05-07 16:44] LABS: PLATELET SUFFICIENCY NORMAL (NORMAL)
[2023-05-07 17:00] LABS: POTASSIUM 3.5 mmol/L (3.4-5.1)
== END | disposition home or self-care (01) ==
LOC: LAB 01:39 → CT 15:00 → LAB 15:00
PROVIDERS: Family Medicine; ATTEND Internal Medicine Critical Care Medicine
DX: J43.9 Emphysema, unspecified (principal); R91.8 Other nonspecific abnormal finding of lung field; J85.1 Abscess of lung with pneumonia; Z87.891 Personal history of nicotine dependence; J98.11 Atelectasis; J96.11 Chronic respiratory failure with hypoxia; Z99.81 Dependence on supplemental oxygen; R63.4 Abnormal weight loss; J15.5 Pneumonia due to Escherichia coli; J15.1 Pneumonia due to Pseudomonas

== ENCOUNTER → 2023-06-01 | Day surgery (SDC) | payer BC ==
[~2023-06-01] VITALS: Ht 170.1 cm; Wt 61.2 kg
[~2023-06-01] MED LIST changes: +BUMETANIDE1 MG PO; +LEVOFLOXACIN750 M2 PO; +LISINOPRIL5 MG PO; +MEROPENEM-1 GM/50 ML IV; +METRONIDAZOLE500 M1 PO; +VANCOMYCIN1.25 GM/22 IV; +ZYVOX600 MG PO
[2023-06-01 08:31] VITALS: BP 167/91
[2023-06-01 09:50] VITALS: BP 156/87
[2023-06-01 10:05] VITALS: BP 164/88
[2023-06-01 10:46] VITALS: BP 166/88
[2023-06-02 10:08] LABS: ACID FAST SPEC PROCESSING Concentration (.)
== END ==
LOC: SDC 05-31 10:15
PROVIDERS: ATTEND Internal Medicine Critical Care Medicine
DX: J85.1 Abscess of lung with pneumonia (principal); R05.9 Cough, unspecified; A49.02 Methicillin resistant Staphylococcus aureus infection, unspecified site; J40 Bronchitis, not specified as acute or chronic; J44.9 Chronic obstructive pulmonary disease, unspecified; I25.2 Old myocardial infarction; Z86.73 Personal history of transient ischemic attack (TIA), and cerebral infarction without residual deficits; Z87.891 Personal history of nicotine dependence; Z98.890 Other specified postprocedural states

== ENCOUNTER 2023-09-06 19:02 | Emergency (ER) | payer BC ==
[~2023-09-06] VITALS: Ht 294.6 cm; Wt 63.5 kg
[~2023-09-06 19:02] MED LIST changes: +'XANAX0.5 MG PO; +ASPIRIN81 M1 PO; +AZITHROMYCIN500 M2 PO; +BUSPIRONE HCL10 MG PO; +CARDIZEM30 MG PO; +CEFEPIME HYDROCH2 GM IJ; +CIPROFLOXACIN750 MG PO; +ERTAPENEM1 GM IV; +ETHAMBUTOL HCL100 MG PO; +ETHAMBUTOL HYD400 MG PO; +KLOR-CON M2020 ME1 PO; +LEVOTHYROXINE50 MC1 PO; +MAGNESIUM400 M1 PO; +MIRAPEX0.5 MG PO; +MUCUS RELIEF600 MG PO; +Magnesium Oxid400 MG PO; +NATURE'S BLEND F1 MG PO; +OXYCODONE-ACET1 EACH PO; +PERCOCET 7.5-31 EACH PO; +POTASSIUM CHLO20 ME3 PO; +Rimactane,Rifa300 MG PO; +Synthroid,Levo50 MCG PO; +TRAMADOL HCL100 MG PO; +VANCOMYCIN HYDRO1 GM IV; +VITAMIN B121000 MC1 PO; +ZINC-22050 MG PO; +ZINC50 M4 PO
[2023-09-06 19:09] VITALS: BP 122/61
== END 2023-09-07 00:27 | disposition home or self-care (01) ==
LOC: ED 19:02
DX: Z48.00 Encounter for change or removal of nonsurgical wound dressing (principal); Z91.041 Radiographic dye allergy status; Z88.0 Allergy status to penicillin; Z88.5 Allergy status to narcotic agent; Z88.2 Allergy status to sulfonamides; Z88.8 Allergy status to other drugs, medicaments and biological substances; Z90.49 Acquired absence of other specified parts of digestive tract; Z90.710 Acquired absence of both cervix and uterus; Z98.890 Other specified postprocedural states; Z90.89 Acquired absence of other organs; Z87.891 Personal history of nicotine dependence

== ENCOUNTER 2023-09-15 16:22 | Emergency (ER) | payer BC ==
[~2023-09-15] VITALS: Ht 167.6 cm; Wt 63.5 kg
[2023-09-15 16:26] VITALS: BP 124/69
== END 2023-09-15 19:01 ==
LOC: ED 16:22
DX: Z48.00 Encounter for change or removal of nonsurgical wound dressing (principal); J44.9 Chronic obstructive pulmonary disease, unspecified; Z91.041 Radiographic dye allergy status; Z88.5 Allergy status to narcotic agent; Z88.2 Allergy status to sulfonamides; Z88.8 Allergy status to other drugs, medicaments and biological substances; Z90.710 Acquired absence of both cervix and uterus; Z90.49 Acquired absence of other specified parts of digestive tract; Z98.890 Other specified postprocedural states; Z87.891 Personal history of nicotine dependence; Z90.89 Acquired absence of other organs

== ENCOUNTER 2023-09-19 17:57 | Emergency (ER) | payer BC ==
[~2023-09-19] VITALS: Ht 167.6 cm; Wt 63.5 kg
[2023-09-19 18:05] VITALS: BP 104/73
[2023-09-19] MEDS ORDERED: PREDNISONE20 M1 PO (18:20)
== END 2023-09-19 19:08 | disposition home or self-care (01) ==
LOC: ED 17:57
DX: Z04.3 Encounter for examination and observation following other accident (principal); E87.1 Hypo-osmolality and hyponatremia; D64.9 Anemia, unspecified; J44.9 Chronic obstructive pulmonary disease, unspecified; F32.A Depression, unspecified; I10 Essential (primary) hypertension; E03.9 Hypothyroidism, unspecified; Z88.0 Allergy status to penicillin; Z88.5 Allergy status to narcotic agent; Z88.2 Allergy status to sulfonamides; Z91.041 Radiographic dye allergy status; Z88.8 Allergy status to other drugs, medicaments and biological substances; Z90.49 Acquired absence of other specified parts of digestive tract; Z90.710 Acquired absence of both cervix and uterus; Z98.890 Other specified postprocedural states; Z90.89 Acquired absence of other organs; Z87.891 Personal history of nicotine dependence; V43.62XA Car passenger injured in collision with other type car in traffic accident, initial encounter; Y93.89 Activity, other specified; Y92.410 Unspecified street and highway as the place of occurrence of the external cause; Y99.8 Other external cause status

== ENCOUNTER → 2024-01-17 | Outpatient (CLI) | payer BC ==
[2024-01-17 15:31] LABS: BASO # 0.1 10*3/uL (0.0-0.1); BASO % 0.5 % (0.0-1.0); EOS # 0.3 10*3/uL (0.0-0.4); EOS % 2.2 % (1.0-4.0); HEMATOCRIT 34.4 % (37.0-47.0); LYMPH # 2.3 10*3/uL (1.3-4.4); LYMPH % 18.9 % (27.0-41.0); MEAN CELL VOLUME 85.4 fl (81.0-99.0); MEAN CORPUSCULAR HGB 24.8 pg (27.0-31.0); MEAN CORPUSCULAR HGB CONC 29.1 g/dl (33.0-37.0); MEAN PLATELET VOLUME 8.7 fl (9.6-12.3); MONO # 0.8 10*3/uL (0.1-1.0); MONO % 6.6 % (3.0-9.0); NEUT # 8.8 10*3/uL (2.3-7.9); NEUT % 71.3 % (47.0-73.0); PLATELET COUNT AUTOMATED 507 10*3/uL (130-400); RED BLOOD COUNT 4.03 10*6/uL (4.10-5.10); RED CELL DISTRI WIDTH 16.2 % (0-14.5); WHITE BLOOD COUNT 12.3 10*3/uL (4.8-10.8)
[2024-01-17 15:54] LABS: ALKALINE PHOSPHATASE 151 U/L (46-116); SGPT/ALT 8 U/L (5-49); TOTAL PROTEIN 8.1 gm/dL (6.0-8.0)
== END | disposition home or self-care (01) ==
LOC: LAB 00:20
PROVIDERS: ATTEND Internal Medicine Critical Care Medicine
DX: J44.9 Chronic obstructive pulmonary disease, unspecified (principal); J85.1 Abscess of lung with pneumonia; R91.1 Solitary pulmonary nodule; J15.8 Pneumonia due to other specified bacteria; A31.0 Pulmonary mycobacterial infection; Z87.891 Personal history of nicotine dependence; Z99.81 Dependence on supplemental oxygen; Z79.899 Other long term (current) drug therapy

== ENCOUNTER → 2024-02-14 | Outpatient (CLI) | payer BC ==
[2024-02-14 15:00] LABS: BASO # 0.1 10*3/uL (0.0-0.1); BASO % 0.6 % (0.0-1.0); EOS # 0.5 10*3/uL (0.0-0.4); EOS % 5.4 % (1.0-4.0); HEMATOCRIT 31.4 % (37.0-47.0); LYMPH # 2.1 10*3/uL (1.3-4.4); LYMPH % 20.7 % (27.0-41.0); MEAN CELL VOLUME 84.2 fl (81.0-99.0); MEAN CORPUSCULAR HGB 24.7 pg (27.0-31.0); MEAN CORPUSCULAR HGB CONC 29.3 g/dl (33.0-37.0); MEAN PLATELET VOLUME 9.2 fl (9.6-12.3); MONO # 0.8 10*3/uL (0.1-1.0); MONO % 8.3 % (3.0-9.0); NEUT # 6.5 10*3/uL (2.3-7.9); NEUT % 64.6 % (47.0-73.0); PLATELET COUNT AUTOMATED 497 10*3/uL (130-400); RED BLOOD COUNT 3.73 10*6/uL (4.10-5.10); RED CELL DISTRI WIDTH 16.6 % (0-14.5)
[2024-02-14 15:20] LABS: ALKALINE PHOSPHATASE 165 U/L (46-116); SGPT/ALT 9 U/L (5-49); TOTAL PROTEIN 7.7 gm/dL (6.0-8.0)
== END | disposition home or self-care (01) ==
LOC: LAB 00:06
PROVIDERS: ATTEND Internal Medicine Critical Care Medicine
DX: Z79.899 Other long term (current) drug therapy (principal)

== ENCOUNTER → 2024-03-20 | Outpatient (CLI) | payer BC ==
[2024-03-20 16:04] LABS: BASO # 0.1 10*3/uL (0.0-0.1); BASO % 0.5 % (0.0-1.0); EOS # 0.1 10*3/uL (0.0-0.4); HEMATOCRIT 36.4 % (37.0-47.0); LYMPH # 2.3 10*3/uL (1.3-4.4); LYMPH % 18.7 % (27.0-41.0); MEAN CORPUSCULAR HGB 23.9 pg (27.0-31.0); MEAN CORPUSCULAR HGB CONC 29.1 g/dl (33.0-37.0); MEAN PLATELET VOLUME 8.6 fl (9.6-12.3); MONO # 0.8 10*3/uL (0.1-1.0); MONO % 6.2 % (3.0-9.0); NEUT # 9.1 10*3/uL (2.3-7.9); PLATELET COUNT AUTOMATED 616 10*3/uL (130-400); RED BLOOD COUNT 4.44 10*6/uL (4.10-5.10); RED CELL DISTRI WIDTH 16.3 % (0-14.5); WHITE BLOOD COUNT 12.5 10*3/uL (4.8-10.8)
[2024-03-20 16:24] LABS: ALKALINE PHOSPHATASE 187 U/L (46-116); SGPT/ALT 15 U/L (5-49); TOTAL PROTEIN 8.4 gm/dL (6.0-8.0)
== END | disposition home or self-care (01) ==
LOC: LAB 01:19
PROVIDERS: ATTEND Internal Medicine Critical Care Medicine
DX: J44.9 Chronic obstructive pulmonary disease, unspecified (principal); R91.1 Solitary pulmonary nodule; J15.8 Pneumonia due to other specified bacteria; A31.0 Pulmonary mycobacterial infection; J35.1 Hypertrophy of tonsils; Z87.891 Personal history of nicotine dependence; Z99.81 Dependence on supplemental oxygen; Z79.899 Other long term (current) drug therapy

== ENCOUNTER → 2024-03-26 | Outpatient (CLI) | payer BC | END | disposition home or self-care (01) | LOC: CT 01:30 | PROVIDERS: ATTEND Internal Medicine Critical Care Medicine | DX: R91.8 Other nonspecific abnormal finding of lung field (principal); J44.9 Chronic obstructive pulmonary disease, unspecified; J96.11 Chronic respiratory failure with hypoxia; A31.0 Pulmonary mycobacterial infection; J98.11 Atelectasis; Z87.891 Personal history of nicotine dependence ==

== ENCOUNTER → 2024-04-17 | Outpatient (CLI) | payer BC ==
[2024-04-17 18:02] LABS: BASO # 0.1 10*3/uL (0.0-0.1); BASO % 0.6 % (0.0-1.0); EOS # 0.4 10*3/uL (0.0-0.4); EOS % 3.7 % (1.0-4.0); HEMATOCRIT 35.3 % (37.0-47.0); LYMPH % 24.7 % (27.0-41.0); MEAN CELL VOLUME 81.1 fl (81.0-99.0); MEAN CORPUSCULAR HGB 23.2 pg (27.0-31.0); MEAN CORPUSCULAR HGB CONC 28.6 g/dl (33.0-37.0); MONO # 0.9 10*3/uL (0.1-1.0); MONO % 7.2 % (3.0-9.0); NEUT # 7.5 10*3/uL (2.3-7.9); NEUT % 62.8 % (47.0-73.0); PLATELET COUNT AUTOMATED 506 10*3/uL (130-400); RED BLOOD COUNT 4.35 10*6/uL (4.10-5.10); RED CELL DISTRI WIDTH 16.6 % (0-14.5)
[2024-04-17 18:21] LABS: ALKALINE PHOSPHATASE 182 U/L (46-116); SGPT/ALT 12 U/L (5-49); TOTAL PROTEIN 7.8 gm/dL (6.0-8.0)
== END | disposition home or self-care (01) ==
LOC: LAB 00:39
PROVIDERS: ATTEND Internal Medicine Critical Care Medicine
DX: J85.1 Abscess of lung with pneumonia (principal); J44.9 Chronic obstructive pulmonary disease, unspecified; J96.11 Chronic respiratory failure with hypoxia; R91.1 Solitary pulmonary nodule; J16.8 Pneumonia due to other specified infectious organisms; A31.0 Pulmonary mycobacterial infection; Z87.891 Personal history of nicotine dependence; Z99.81 Dependence on supplemental oxygen; Z79.899 Other long term (current) drug therapy

== ENCOUNTER → 2024-05-15 | Outpatient (CLI) | payer BC ==
[2024-05-15 17:50] LABS: BASO # 0.1 10*3/uL (0.0-0.1); BASO % 0.3 % (0.0-1.0); EOS # 0.4 10*3/uL (0.0-0.4); EOS % 2.3 % (1.0-4.0); HEMATOCRIT 31.5 % (37.0-47.0); LYMPH # 2.2 10*3/uL (1.3-4.4); LYMPH % 13.4 % (27.0-41.0); MEAN CELL VOLUME 80.4 fl (81.0-99.0); MEAN CORPUSCULAR HGB 23.5 pg (27.0-31.0); MEAN CORPUSCULAR HGB CONC 29.2 g/dl (33.0-37.0); MEAN PLATELET VOLUME 8.6 fl (9.6-12.3); MONO # 1.2 10*3/uL (0.1-1.0); MONO % 7.2 % (3.0-9.0); NEUT # 12.4 10*3/uL (2.3-7.9); NEUT % 76.2 % (47.0-73.0); PLATELET COUNT AUTOMATED 431 10*3/uL (130-400); RED BLOOD COUNT 3.92 10*6/uL (4.10-5.10); RED CELL DISTRI WIDTH 16.8 % (0-14.5); WHITE BLOOD COUNT 16.2 10*3/uL (4.8-10.8)
[2024-05-15 18:15] LABS: ALKALINE PHOSPHATASE 148 U/L (46-116); SGPT/ALT 13 U/L (5-49); TOTAL PROTEIN 7.4 gm/dL (6.0-8.0)
== END | disposition home or self-care (01) ==
LOC: LAB 00:22
PROVIDERS: ATTEND Internal Medicine Critical Care Medicine
DX: J44.9 Chronic obstructive pulmonary disease, unspecified (principal); J96.11 Chronic respiratory failure with hypoxia; J85.1 Abscess of lung with pneumonia; R91.1 Solitary pulmonary nodule; J16.8 Pneumonia due to other specified infectious organisms; A31.0 Pulmonary mycobacterial infection; Z99.81 Dependence on supplemental oxygen; Z87.891 Personal history of nicotine dependence

== ENCOUNTER → 2024-06-17 | Outpatient (CLI) | payer BC ==
[2024-06-17 18:12] LABS: BASO % 0.3 % (0.0-1.0); EOS # 0.3 10*3/uL (0.0-0.4); EOS % 2.2 % (1.0-4.0); HEMATOCRIT 34.3 % (37.0-47.0); LYMPH # 1.6 10*3/uL (1.3-4.4); LYMPH % 12.5 % (27.0-41.0); MEAN CORPUSCULAR HGB 22.4 pg (27.0-31.0); MEAN PLATELET VOLUME 8.6 fl (9.6-12.3); MONO # 0.3 10*3/uL (0.1-1.0); MONO % 2.6 % (3.0-9.0); NEUT # 10.5 10*3/uL (2.3-7.9); NEUT % 81.8 % (47.0-73.0); PLATELET COUNT AUTOMATED 490 10*3/uL (130-400); RED BLOOD COUNT 4.29 10*6/uL (4.10-5.10); RED CELL DISTRI WIDTH 16.9 % (0-14.5); WHITE BLOOD COUNT 12.9 10*3/uL (4.8-10.8)
[2024-06-17 18:39] LABS: ALKALINE PHOSPHATASE 175 U/L (46-116); SGPT/ALT 11 U/L (5-49)
== END | disposition home or self-care (01) ==
LOC: LAB 03:44
PROVIDERS: ATTEND Internal Medicine Critical Care Medicine
DX: R91.1 Solitary pulmonary nodule (principal); J44.9 Chronic obstructive pulmonary disease, unspecified; J85.1 Abscess of lung with pneumonia; J96.11 Chronic respiratory failure with hypoxia; A31.0 Pulmonary mycobacterial infection; Z87.891 Personal history of nicotine dependence; Z99.81 Dependence on supplemental oxygen; J16.8 Pneumonia due to other specified infectious organisms

== ENCOUNTER → 2024-07-17 | Outpatient (CLI) | payer BC ==
[2024-07-17 15:56] LABS: BASO # 0.1 10*3/uL (0.0-0.1); BASO % 0.6 % (0.0-1.0); EOS # 0.4 10*3/uL (0.0-0.4); EOS % 4.2 % (1.0-4.0); HEMATOCRIT 34.3 % (37.0-47.0); LYMPH # 2.2 10*3/uL (1.3-4.4); LYMPH % 24.6 % (27.0-41.0); MEAN CELL VOLUME 79.2 fl (81.0-99.0); MEAN CORPUSCULAR HGB 22.6 pg (27.0-31.0); MEAN CORPUSCULAR HGB CONC 28.6 g/dl (33.0-37.0); MEAN PLATELET VOLUME 8.4 fl (9.6-12.3); MONO # 0.6 10*3/uL (0.1-1.0); MONO % 6.4 % (3.0-9.0); NEUT # 5.7 10*3/uL (2.3-7.9); NEUT % 63.7 % (47.0-73.0); PLATELET COUNT AUTOMATED 436 10*3/uL (130-400); RED BLOOD COUNT 4.33 10*6/uL (4.10-5.10); RED CELL DISTRI WIDTH 16.8 % (0-14.5); WHITE BLOOD COUNT 8.9 10*3/uL (4.8-10.8)
[2024-07-17 16:24] LABS: ALKALINE PHOSPHATASE 164 U/L (46-116); SGPT/ALT 13 U/L (5-49); TOTAL PROTEIN 7.5 gm/dL (6.0-8.0)
== END | disposition home or self-care (01) ==
LOC: LAB 01:35
PROVIDERS: ATTEND Internal Medicine Critical Care Medicine
DX: J44.9 Chronic obstructive pulmonary disease, unspecified (principal); J96.11 Chronic respiratory failure with hypoxia; R91.1 Solitary pulmonary nodule; A31.0 Pulmonary mycobacterial infection; J16.8 Pneumonia due to other specified infectious organisms; J85.1 Abscess of lung with pneumonia; Z87.891 Personal history of nicotine dependence

== ENCOUNTER → 2024-08-13 | Outpatient (CLI) | payer BC ==
[2024-08-13 12:42] LABS: BASO # 0.1 10*3/uL (0.0-0.1); BASO % 0.6 % (0.0-1.0); EOS # 0.3 10*3/uL (0.0-0.4); HEMATOCRIT 36.4 % (37.0-47.0); MEAN CELL VOLUME 78.3 fl (81.0-99.0); MEAN CORPUSCULAR HGB 22.2 pg (27.0-31.0); MEAN CORPUSCULAR HGB CONC 28.3 g/dl (33.0-37.0); MEAN PLATELET VOLUME 8.2 fl (9.6-12.3); MONO # 0.6 10*3/uL (0.1-1.0); MONO % 5.7 % (3.0-9.0); NEUT # 6.7 10*3/uL (2.3-7.9); NEUT % 69.4 % (47.0-73.0); PLATELET COUNT AUTOMATED 475 10*3/uL (130-400); RED BLOOD COUNT 4.65 10*6/uL (4.10-5.10); RED CELL DISTRI WIDTH 17.1 % (0-14.5); WHITE BLOOD COUNT 9.7 10*3/uL (4.8-10.8)
[2024-08-13 13:15] LABS: TOTAL PROTEIN 8.3 gm/dL (6.0-8.0)
== END | disposition home or self-care (01) ==
LOC: LAB 03:35
PROVIDERS: ATTEND Internal Medicine Critical Care Medicine
DX: R91.1 Solitary pulmonary nodule (principal); J44.9 Chronic obstructive pulmonary disease, unspecified; J98.11 Atelectasis

== ENCOUNTER → 2024-08-30 | Outpatient (CLI) | payer BC ==
[2024-08-30 11:26] LABS: BUN 25 mg/dl (9-23); CHLORIDE 104 mmol/L (98-107); POTASSIUM 5.6 mmol/L (3.4-5.1)
== END | disposition home or self-care (01) ==
LOC: LAB 10:54
PROVIDERS: ATTEND Internal Medicine Critical Care Medicine
DX: J44.9 Chronic obstructive pulmonary disease, unspecified (principal); J96.11 Chronic respiratory failure with hypoxia; R91.1 Solitary pulmonary nodule; A31.0 Pulmonary mycobacterial infection; Z87.891 Personal history of nicotine dependence; Z99.81 Dependence on supplemental oxygen

== ENCOUNTER → 2024-09-18 | Outpatient (CLI) | payer BC ==
[2024-09-18 11:39] LABS: BUN 19 mg/dl (9-23); CHLORIDE 103 mmol/L (98-107); POTASSIUM 5.3 mmol/L (3.4-5.1)
== END | disposition home or self-care (01) ==
LOC: LAB 00:27
PROVIDERS: ATTEND Internal Medicine Critical Care Medicine
DX: J96.11 Chronic respiratory failure with hypoxia (principal); R91.1 Solitary pulmonary nodule; J16.8 Pneumonia due to other specified infectious organisms; A31.0 Pulmonary mycobacterial infection; J85.1 Abscess of lung with pneumonia; Z87.891 Personal history of nicotine dependence

== ENCOUNTER → 2024-11-27 | Outpatient (CLI) | payer BC ==
[2024-11-27 17:17] LABS: BUN 21 mg/dl (9-23); CHLORIDE 106 mmol/L (98-107); POTASSIUM 4.7 mmol/L (3.4-5.1)
== END | disposition home or self-care (01) ==
LOC: LAB 00:32
PROVIDERS: ATTEND Internal Medicine Critical Care Medicine
DX: I50.20 Unspecified systolic (congestive) heart failure (principal); J44.9 Chronic obstructive pulmonary disease, unspecified; J96.11 Chronic respiratory failure with hypoxia; R91.1 Solitary pulmonary nodule; A31.0 Pulmonary mycobacterial infection; Z87.891 Personal history of nicotine dependence; Z99.81 Dependence on supplemental oxygen

== ENCOUNTER → 2024-12-25 | Outpatient (CLI) | payer BC ==
[2024-12-25 16:01] LABS: BUN 18 mg/dl (9-23); CHLORIDE 102 mmol/L (98-107); POTASSIUM 5.5 mmol/L (3.4-5.1)
== END | disposition home or self-care (01) ==
LOC: LAB 02:45
PROVIDERS: ATTEND Internal Medicine Critical Care Medicine
DX: I50.20 Unspecified systolic (congestive) heart failure (principal)

== ENCOUNTER → 2025-02-12 | Outpatient (CLI) | payer BC ==
[2025-02-12 16:38] LABS: BUN 21 mg/dl (9-23); CHLORIDE 100 mmol/L (98-107)
[2025-02-12 16:41] LABS: POTASSIUM 6.3 mmol/L (3.4-5.1)
== END | disposition home or self-care (01) ==
LOC: LAB 02:36
PROVIDERS: ATTEND Internal Medicine Critical Care Medicine
DX: J44.9 Chronic obstructive pulmonary disease, unspecified (principal); R91.1 Solitary pulmonary nodule; A31.0 Pulmonary mycobacterial infection; J96.11 Chronic respiratory failure with hypoxia; Z99.81 Dependence on supplemental oxygen; Z87.891 Personal history of nicotine dependence

== ENCOUNTER 2025-02-13 14:23 | Emergency (ER) | payer BC ==
[~2025-02-13] VITALS: Ht 170.1 cm; Wt 68.0 kg
[2025-02-13 14:39] VITALS: BP 110/74
[2025-02-13 15:02] LABS: BASO # 0.1 10*3/uL (0.0-0.1); BASO % 0.6 % (0.0-1.0); EOS % 9.4 % (1.0-4.0); HEMATOCRIT 33.6 % (37.0-47.0); MEAN CELL VOLUME 93.9 fl (81.0-99.0); MEAN CORPUSCULAR HGB 28.2 pg (27.0-31.0); MEAN CORPUSCULAR HGB CONC 30.1 g/dl (33.0-37.0); MEAN PLATELET VOLUME 8.9 fl (9.6-12.3); MONO # 0.8 10*3/uL (0.1-1.0); MONO % 7.4 % (3.0-9.0); NEUT # 7.3 10*3/uL (2.3-7.9); NEUT % 67.3 % (47.0-73.0); PLATELET COUNT AUTOMATED 406 10*3/uL (130-400); RED BLOOD COUNT 3.58 10*6/uL (4.10-5.10); RED CELL DISTRI WIDTH 15.2 % (0-14.5); WHITE BLOOD COUNT 10.8 10*3/uL (4.8-10.8)
[2025-02-13 15:28] LABS: BUN 20 mg/dl (9-23); CHLORIDE 97 mmol/L (98-107)
[2025-02-13 15:39] LABS: POTASSIUM 5.1 mmol/L (3.4-5.1)
== END 2025-02-13 15:52 | disposition home or self-care (01) ==
LOC: ED 14:23
PROVIDERS: Physician Assistant Medical
DX: R79.9 Abnormal finding of blood chemistry, unspecified (principal); Z79.82 Long term (current) use of aspirin; Z79.899 Other long term (current) drug therapy; Z88.1 Allergy status to other antibiotic agents; Z88.6 Allergy status to analgesic agent; Z88.8 Allergy status to other drugs, medicaments and biological substances; Z90.49 Acquired absence of other specified parts of digestive tract; Z90.710 Acquired absence of both cervix and uterus; Z98.890 Other specified postprocedural states

== ENCOUNTER → 2025-03-19 | Outpatient (CLI) | payer BC ==
[2025-03-19 14:44] LABS: ALKALINE PHOSPHATASE 202 U/L (46-116); BUN 24 mg/dl (9-23); CHLORIDE 97 mmol/L (98-107); POTASSIUM 4.3 mmol/L (3.4-5.1); SGPT/ALT 12 U/L (5-49); TOTAL PROTEIN 7.7 gm/dL (6.0-8.0)
== END | disposition home or self-care (01) ==
LOC: LAB 01:44
PROVIDERS: Family Medicine; ATTEND Internal Medicine Critical Care Medicine
DX: I50.20 Unspecified systolic (congestive) heart failure (principal); E87.5 Hyperkalemia; J44.9 Chronic obstructive pulmonary disease, unspecified; J96.11 Chronic respiratory failure with hypoxia; R91.1 Solitary pulmonary nodule; A31.0 Pulmonary mycobacterial infection; Z99.81 Dependence on supplemental oxygen; Z87.891 Personal history of nicotine dependence

== ENCOUNTER → 2025-04-16 | Outpatient (CLI) | payer BC ==
[2025-04-16 16:14] LABS: BUN 16 mg/dl (9-23)
== END | disposition home or self-care (01) ==
LOC: LAB 02:13
PROVIDERS: ATTEND Internal Medicine Critical Care Medicine
DX: I50.20 Unspecified systolic (congestive) heart failure (principal)

== ENCOUNTER → 2025-04-20 | Outpatient (CLI) | payer BC | END | disposition home or self-care (01) | LOC: CT 02:02 | PROVIDERS: ATTEND Internal Medicine Critical Care Medicine | DX: Z12.2 Encounter for screening for malignant neoplasm of respiratory organs (principal); J47.9 Bronchiectasis, uncomplicated; J43.9 Emphysema, unspecified; R91.8 Other nonspecific abnormal finding of lung field; I25.10 Atherosclerotic heart disease of native coronary artery without angina pectoris; J90 Pleural effusion, not elsewhere classified; J92.9 Pleural plaque without asbestos; J98.4 Other disorders of lung; Z87.891 Personal history of nicotine dependence ==

== ENCOUNTER → 2025-07-16 | Outpatient (CLI) | payer BC ==
[2025-07-16 17:48] LABS: BASO # 0.1 10*3/uL (0.0-0.1); BASO % 0.6 % (0.0-1.0); EOS # 1.0 10*3/uL (0.0-0.4); EOS % 10.3 % (1.0-4.0); MEAN CELL VOLUME 93.1 fl (81.0-99.0); MEAN CORPUSCULAR HGB 27.5 pg (27.0-31.0); MEAN PLATELET VOLUME 9.4 fl (9.6-12.3); MONO # 0.8 10*3/uL (0.1-1.0); MONO % 8.0 % (3.0-9.0); NEUT # 5.2 10*3/uL (2.3-7.9); NEUT % 55.2 % (47.0-73.0); NUCLEATED RED BLOOD CELL 0.0 % (0.0-0.0); NUCLEATED RED BLOOD CELL 0.0 10*3/uL (0.0-0.0); PLATELET COUNT AUTOMATED 392 10*3/uL (130-400); RED CELL DISTRI WIDTH 14.3 % (0-14.5)
[2025-07-16 18:10] LABS: SGPT/ALT 10 U/L (5-49)
== END | disposition home or self-care (01) ==
LOC: LAB 07-14 16:01
PROVIDERS: ATTEND Internal Medicine Critical Care Medicine
DX: J44.9 Chronic obstructive pulmonary disease, unspecified (principal); J96.11 Chronic respiratory failure with hypoxia; A31.0 Pulmonary mycobacterial infection; R91.1 Solitary pulmonary nodule; Z87.891 Personal history of nicotine dependence